=== PATIENT | female | born 1945 | race African-American/Black ===

== ENCOUNTER 2016-06-11 11:16 | Inpatient (IN) | payer OTHER ==
[~2016-06-11] VITALS: Ht 160 cm; Wt 54.4 kg
[~2016-06-11 11:16] MED LIST: AUGMENTIN 500-1 EACH ORAL
[2016-06-11] MEDS ORDERED: PREVACID15 MG ORAL (11:36)
[2016-06-11 12:00] VITALS: BP 135/58
[2016-06-11] MEDS ORDERED: Morphine Sulfate 2mg/ml Inj IVP ONE (12:00)
[2016-06-11] MEDS ORDERED: Tubing IV Cassette IV ONE (12:07)
[2016-06-11 12:51] LABS: MEAN CORPUSCULAR HGB CONC 33.2 G/DL (32.0-36.0); MEAN CORPUSCULAR VOLUME 99 FL (80-99); MEAN PLATELET VOLUME 9.5 FL (6.5-10.1); PLATELET COUNT 104 K/UL (150-450); RED BLOOD COUNT 4.53 M/UL (4.20-5.40); RED CELL DISTRIBUTION WIDTH 12.8 % (11.6-14.8)
[2016-06-11 12:57] LABS: WHITE BLOOD COUNT 1.3 K/UL (4.8-10.8)
[2016-06-11 13:02] LABS: ALANINE AMINOTRANSFERASE 13 U/L (3-33); ALBUMIN/GLOBULIN RATIO 0.6 (1.0-2.7); ANION GAP 14 (5-15); ASPARTATE AMINO TRANSFERASE 47 U/L (5-40); CALCIUM 9.2 mg/dL (8.6-10.2); CARBON DIOXIDE 23 mEQ/L (20-30); CHLORIDE 100 mEQ/L (98-107); CREATININE 0.6 mg/dL (0.5-0.9); GLOMERULAR FILTRATION RATE > 60 mL/min (>60); HEMOLYSIS 8; LIPASE 37 U/L (< 60); POTASSIUM 4.5 mEQ/L (3.4-4.9); SODIUM 137 mEQ/L (135-145); TOTAL PROTEIN 8.4 g/dL (6.6-8.7); TROPONIN I < 0.30 ng/mL (<=0.30)
[2016-06-11 13:03] LABS: INR 1.2 (0.9-1.1); PROTHROMBIN TIME 12.3 SEC (9.30-11.50)
[2016-06-11 13:19] LABS: BILIRUBIN,DIRECT 0.5 mg/dL (0.1-0.3)
[2016-06-11 13:20] LABS: BAND NEUTROPHILS % (MANUAL) 0 % (0-8); BASOPHILS % (MANUAL) 0 % (0-2); EOSINOPHILS % (MANUAL) 9 % (0-3); LYMPHOCYTES % (MANUAL) 46 % (20-45); NEUTROPHILS % (MANUAL) 30 % (45-75); PLATELET ESTIMATE DECREASED; PLATELET MORPHOLOGY NORMAL; TOTAL CELLS COUNTED 100
[2016-06-11 15:07] VITALS: BP 102/61
[2016-06-11] MEDS ORDERED: XANAX2 MG ORAL (15:53)
[2016-06-11] MEDS ORDERED: BACLOFEN10 MG ORAL (15:54)
[2016-06-11] MEDS ORDERED: OMEPRAZOLE20 M2 ORAL (15:55)
[2016-06-11] MEDS ORDERED: PROAIR HFA8.5 GM INH (15:56)
[2016-06-11] MEDS ORDERED: ACETAMINOPHEN1 EACH ORAL (15:58)
[2016-06-11] MEDS ORDERED: TUMS200 M1 PO (15:59)
--- NOTE | 2016-06-11 16:25 | Emergency Room Report ---
History of Present Illness General Chief Complaint: Abdominal Pain Source: Patient, EMS Present Illness HPI Presents with severe diarrhea and now weakness. The diarrhea is been going on for 3 weeks. It's worse in the last week. Apparently 2 weeks ago she was taking antibiotics. She has fallen twice in the past 2 days due to weakness. She hit her knees causing abrasions. She's been so weak she's been unable to sit up and transfer without a lot of help from her daughter at home. She was barely able to sit up earlier today. Denies any fevers or chills. She's not vomiting. There's been no blood in the stool. Stool yellowish color. Denies any dysuria. Her mouth is dry. No chest pain, cough, headache, dizziness. Weakness is generalized. She incidentally reports some crampy pain diffusely in the abdomen. Pain reported 8/10, intermittent, not radiate. No recent head trauma. Allergies: Coded Allergies: ASPIRIN (Verified Allergy, Unknown, Hives, 06/11/16) Patient History Past Medical History: see triage record Social History: Reports: smoking Social History Narrative At home with daughter Reviewed Nursing Documentation: PMH: Agreed, PSxH: Agreed Nursing Documentation-PM Past Medical History: No History, Except For Hx Gastrointestinal Problems: Yes - GERD Review of Systems All Other Systems: negative except mentioned in HPI Physical Exam Vital Signs Date Time Temp Pulse Resp B/P Pulse Ox O2 Delivery O2 Flow Rate FiO2 06/11/16 11:32 98.6 91 20 107/56 100 Room Air Sp02 EP Interpretation: reviewed, normal General Appearance: no apparent distress, GCS 15, obese, Chronically Ill Head: normocephalic Eyes: bilateral eye PERRL, bilateral eye normal inspection ENT: dry mucus membranes - coating on tongue Neck: supple Respiratory: chest non-tender, lungs clear, normal breath sounds Cardiovascular #1: regular rate, rhythm, edema Cardiovascular #2: 2+ radial (R) Gastrointestinal: normal inspection, normal bowel sounds, no mass, no guarding , no rebound, tenderness - minimal, diffuse, overweight Musculoskeletal: back normal, normal range of motion Neurologic: alert, oriented x3, cnc maintenance technician III-XII nml as tested, DTRs symmetric, sensory intact, cerebellar normal, speech normal, motor weakness - 4+/5 LE, arms normal Psychiatric: depressed affect Skin: normal inspection, warm/dry Medical Decision Making Diagnostic Impression: Primary Impression: Dysentery Additional Impressions: Weakness Leukopenia Qualified Codes: D72.818 - Other decreased white blood cell count ER Course Patient presents with acute exacerbation of subacute diarrhea with abdominal pain. DDx: C dificile, gastroenteritis, villous adenoma, diverticulitis. Weakness needs to be evaluated with labs, UA and renal function. No evidence of sepsis. Labs sig for leukopenia (has been present since 2009). Ulises not collected. Nl H/H. Urine clear. Patient's pain improved, but weakness persists. Patient admit med. Discussed with Dr. Bain. Laboratory Tests Test 06/11/16 12:00 White Blood Count 1.3 K/UL (4.8-10.8) *L Red Blood Count 4.53 M/UL (4.20-5.40) Hemoglobin 15.0 G/DL (12.0-16.0) Hematocrit 45.1 % (37.0-47.0) Mean Corpuscular Volume 99 FL (80-99) Mean Corpuscular Hemoglobin 33.0 PG (27.0-31.0) H Mean Corpuscular Hemoglobin Concent 33.2 G/DL (32.0-36.0) Red Cell Distribution Width 12.8 % (11.6-14.8) Platelet Count 104 K/UL (150-450) L Mean Platelet Volume 9.5 FL (6.5-10.1) Neutrophils (%) (Auto) % (45.0-75.0) Lymphocytes (%) (Auto) % (20.0-45.0) Monocytes (%) (Auto) % (1.0-10.0) Eosinophils (%) (Auto) % (0.0-3.0) Basophils (%) (Auto) % (0.0-2.0) Differential Total Cells Counted 100 Neutrophils % (Manual) 30 % (45-75) L Lymphocytes % (Manual) 46 % (20-45) H Monocytes % (Manual) 15 % (1-10) H Eosinophils % (Manual) 9 % (0-3) H Basophils % (Manual) 0 % (0-2) Band Neutrophils 0 % (0-8) Platelet Estimate Decreased L Platelet Morphology Normal Red Blood Cell Morphology Normal Prothrombin Time 12.3 SEC (9.30-11.50) H Prothrombin Time INR 1.2 (0.9-1.1) H PTT 32 SEC (23-33) Sodium Level 137 mEQ/L (135-145) Potassium Level 4.5 mEQ/L (3.4-4.9) Chloride Level 100 mEQ/L (98-107) Carbon Dioxide Level 23 mEQ/L (20-30) Anion Gap 14 (5-15) Blood Urea Nitrogen 9 mg/dL (7-23) Creatinine 0.6 mg/dL (0.5-0.9) Estimate Glomerular Filtration Rate > 60 mL/min (>60) Glucose Level 110 mg/dL (74-106) H Calcium Level 9.2 mg/dL (8.6-10.2) Total Bilirubin 1.7 mg/dL (0.0-1.2) H Direct Bilirubin 0.5 mg/dL (0.1-0.3) H Aspartate Amino Transferase (AST) 47 U/L (5-40) H Alanine Aminotransferase (ALT) 13 U/L (3-33) Alkaline Phosphatase 123 U/L (35-104) H Troponin I < 0.30 ng/mL (<=0.30) Total Protein 8.4 g/dL (6.6-8.7) Albumin 3.2 g/dL (3.5-5.2) L Globulin 5.2 g/dL Albumin/Globulin Ratio 0.6 (1.0-2.7) L Lipase 37 U/L (< 60) EKG Diagnostic Results Rate: normal Rhythm: NSR ST Segments: no acute changes Rhythm Strip Diag. Results EP Interpretation: yes Rhythm: NSR, no PVC's, no ectopy Chest X-Ray Diagnostic Results EP Interpretation: Yes Findings: no consolidation, no effusion, no pneumothorax, no acute cardiopulmonary disease Number of Views: 1 Other X-Ray Diagnostic Results Other X-Ray Diagnostic Results : X-Ray Ordered: abd EP Interpretation: Yes Findings: other - No mass, NSBGP, no extra calcifications Number of Views: 1 Last Vital Signs Date Time Temp Pulse Resp B/P Pulse Ox O2 Delivery O2 Flow Rate FiO2 06/11/16 20:00 98.6 79 20 94/62 98 Room Air 06/11/16 20:00 2.0 Status: improved Disposition: ADMITTED INPATIENT Condition: Serious Referrals: [facility],REFERRING (PCP) Mariam,Rodrigo M.D. Jun 11, 2016 16:25
[2016-06-11 16:38] VITALS: BP 98/57
[2016-06-11 16:39] LABS: KETONES,URINE NEGATIVE (NEGATIVE); LEUKOCYTE ESTERASE ,URINE 1+ (NEGATIVE); NITRITE,URINE NEGATIVE (NEGATIVE); PH,URINE 6.5 (4.5-8.0); PROTEIN,URINE NEGATIVE (NEGATIVE); UROBILINOGEN,URINE 4 MG/DL (0.0-1.0)
[2016-06-11 16:52] LABS: APPEARANCE,URINE CLOUDY
[2016-06-11 16:56] LABS: SQUAMOUS EPITHELIAL CELL,UR MANY /LPF (NONE/OCC)
[2016-06-11 16:57] LABS: BACTERIA,URINE FEW /HPF
--- NOTE | 2016-06-11 18:11 | Diagnostic Imaging Report ---
Indication: Chest pain Technique: One view of the chest Comparison: 12/09/2009 Findings: Lungs and pleural spaces are clear. Heart size is normal. Aorta is elongated and tortuous. No significant change Impression: No acute process
[2016-06-11 19:17] VITALS: BP 94/62
[2016-06-11 20:00] VITALS: BP 83/57
[2016-06-11] MEDS ORDERED: Loperamide 2mg cap ORAL PRN (20:15)
[2016-06-11] MEDS ORDERED: Heparin 5000 units/ml inj SUBQ SCH (21:00)
[2016-06-11] MEDS: D5W w/KCl 20mEq 1,000 ML IV SCH (22:00)
[2016-06-12] VITALS: BP 97/65
[2016-06-12 04:00] VITALS: BP_SYST 102; BP_SYST 136; BP_DIAS 74
[2016-06-12 08:00] VITALS: BP 100/66
--- NOTE | 2016-06-12 09:35 | Diagnostic Imaging Report ---
Indication: Abdominal pain Technique: Supine view of the abdomen Comparison: 01/04/2007 Findings: There are right upper quadrant calcifications, presumed gallstones, not evident previously. Bowel gas pattern is unremarkable. No unusual masses. Impression: No acute process Cholelithiasis
[2016-06-12] MEDS: D5W w/KCl 20mEq 1,000 ML IV SCH ×2 (10:13→12:00)
[2016-06-12] MEDS: Morphine Sulfate 2mg/ml Inj IVP PRN ×2 (10:18→19:15)
--- NOTE | 2016-06-12 11:01 | Cardiology Report ---
APPROVED REPORT EKG Measurement Heart [id number] SD [id number] Normal sinus rhythm Possible Left atrial enlargement Low voltage QRS Borderline ECG
[2016-06-12 11:15] LABS: MEAN CORPUSCULAR HGB CONC 32.9 G/DL (32.0-36.0); MEAN CORPUSCULAR VOLUME 100 FL (80-99); MEAN PLATELET VOLUME 5.9 FL (6.5-10.1); PLATELET COUNT 72 K/UL (150-450); RED BLOOD COUNT 3.87 M/UL (4.20-5.40); RED CELL DISTRIBUTION WIDTH 12.8 % (11.6-14.8)
[2016-06-12 11:18] LABS: WHITE BLOOD COUNT 1.5 K/UL (4.8-10.8)
[2016-06-12 11:49] LABS: BAND NEUTROPHILS % (MANUAL) 0 % (0-8); BASOPHILS % (MANUAL) 0 % (0-2); EOSINOPHILS % (MANUAL) 8 % (0-3); LYMPHOCYTES % (MANUAL) 49 % (20-45); NEUTROPHILS % (MANUAL) 33 % (45-75); PLATELET ESTIMATE DECREASED; PLATELET MORPHOLOGY NORMAL; TOTAL CELLS COUNTED 100
[2016-06-12 12:00] VITALS: BP 98/69
[2016-06-12] MEDS: metroNIDAZOLE 500mg 100 ML IVPB SCH ×2 (13:12→22:18)
[2016-06-12] MEDS ORDERED: NS 250 ML IVPB ONE (14:00)
[2016-06-12 16:00] VITALS: BP 91/47
--- NOTE | 2016-06-12 16:19 | History and Physical Report ---
DATE OF ADMISSION: 06/11/2016 HISTORY OF PRESENT ILLNESS: This is a 70-year-old female, who came to the emergency room with complaints of diarrhea. This has been going on for several weeks. She was taking Amoxil a few weeks ago. She states she has also fallen down in the last several days and hit her knees causing abrasions. She is unable to sit up. She is complaining of lower abdominal pain. There is no fever or chills. No emesis. ALLERGIES: Aspirin. PAST MEDICAL HISTORY: Previous medical history is notable for GERD. MEDICATIONS: List of home medications includes Amoxil and other p.r.n. SURGERIES: None reported. REVIEW OF SYSTEMS: She denies any headaches, hematemesis, or melena. She admits to having mild nausea. She admits to having diarrhea. She admits to having generalized weakness. PHYSICAL EXAMINATION: GENERAL: A 70-year-old female. VITAL SIGNS: Blood pressure is 102/70, heart rate 70, respirations 18, she is afebrile, and O2 saturation 93% on room air. HEENT: Unremarkable. CHEST: Clear. Breath sounds bilaterally. ABDOMEN: Soft. There is mild bilateral lower quadrant discomfort. EXTREMITIES: There is edema. EKG: Normal sinus rhythm. LABORATORY DATA: Lab testing shows white count of 1.3, hemoglobin 15, and platelet count is 104,000. Total bilirubin 1.7 and AST 47. Glucose 110. Albumin 3.2. Coags are negative. INR is 1.2. Urinalysis shows 2 to 4 WBC. IMAGING STUDIES: Abdominal x-ray yesterday were nonspecific. X-ray chest is negative. IMPRESSION: 1. Diarrhea. 2. Abdominal pain. 3. History of gastroesophageal reflux disease. 4. Recent antibiotic usage. DISCUSSION: Admit to the hospital. I will start the patient on IV fluids, DVT prophylaxis, and pain medications. Start empiric Flagyl and follow carefully. Obtain GI consultation. Bruce Bain M.D. DR: AYUSH JOB#: [id number] CC:
--- NOTE | 2016-06-12 18:59 | Consultation ---
DATE OF CONSULTATION: 06/12/2016 GASTROENTEROLOGY CONSULTATION CHIEF COMPLAINT: Weakness and diarrhea. HISTORY OF PRESENT ILLNESS: The patient is a very poor historian. Most of history per chart. This is a 70-year-old female, came to the hospital complaining of diarrhea and weakness, this is apparently going on for three weeks. The patient has been losing weight. Apparently two weeks ago, she was taking some antibiotics in. We do not know what kind antibiotics she was taking that she has been having diarrhea since then. PAST MEDICAL HISTORY: Nothing per chart. PAST SURGICAL HISTORY: Unknown. MEDICATIONS: Please see medication reconciliation list. ALLERGIES: Aspirin. FAMILY HISTORY: Noncontributory. REVIEW OF SYSTEMS: Limited. PHYSICAL EXAMINATION: VITAL SIGNS: Temperature 98.1 degrees, pulse 90, respiratory rate 18, and blood pressure 98/69. HEENT: Normocephalic and atraumatic. Sclerae anicteric. NECK: Supple. No evidence of lymphadenopathy. CARDIOVASCULAR: Regular rate and rhythm. Plus S1 and S2. LUNGS: Decreased breath sounds bilaterally and diffusely. ABDOMEN: Soft and nontender. No rebound. No guarding. EXTREMITIES: No cyanosis. No clubbing. No edema. LABORATORY AND DIAGNOSTIC DATA: White count is 1.5, hemoglobin 12.8, hematocrit 38, MCV of 100, and platelet count is 72,000. Glucose is 110. Total bilirubin is 1.7. Direct bilirubin 0.5. Alkaline phosphatase is 123. ASSESSMENT AND PLAN: This is a 70-year-old female with leukopenia, thrombocytopenia, diarrhea and abnormal liver function test. PLAN: Send HIV test. Stool studies including stool for C. difficile. Urine toxicology. Abdominal ultrasound. Hepatitis panel. Follow laboratories. Consider colonoscopy if needed. Anoop Hi M.D. DR: HUGO JOB#: [id number] CC:
[2016-06-12 20:00] VITALS: BP 106/67
[2016-06-13] VITALS: BP 90/62
[2016-06-13] MEDS: D5W w/KCl 20mEq 1,000 ML IV SCH (02:43)
[2016-06-13 04:00] VITALS: BP 96/64
[2016-06-13] MEDS: metroNIDAZOLE 500mg 100 ML IVPB SCH ×3 (04:57→22:00)
[2016-06-13 07:13] LABS: ANION GAP 10 (5-15); CALCIUM 8.6 mg/dL (8.6-10.2); CARBON DIOXIDE 25 mEQ/L (20-30); CHLORIDE 105 mEQ/L (98-107); CREATININE 0.6 mg/dL (0.5-0.9); GLOMERULAR FILTRATION RATE > 60 mL/min (>60); HEMOLYSIS 3; SODIUM 140 mEQ/L (135-145)
[2016-06-13 07:21] LABS: MEAN CORPUSCULAR HEMOGLOBIN 33.4 PG (27.0-31.0); MEAN CORPUSCULAR HGB CONC 33.4 G/DL (32.0-36.0); MEAN CORPUSCULAR VOLUME 100 FL (80-99); MEAN PLATELET VOLUME 6.1 FL (6.5-10.1); PLATELET COUNT 95 K/UL (150-450); RED CELL DISTRIBUTION WIDTH 12.6 % (11.6-14.8)
[2016-06-13 08:00] VITALS: BP 90/60
[2016-06-13 08:07] LABS: WHITE BLOOD COUNT 1.4 K/UL (4.8-10.8)
[2016-06-13] MEDS: Morphine Sulfate 2mg/ml Inj IVP PRN ×3 (08:10→22:12)
[2016-06-13 08:17] LABS: BAND NEUTROPHILS % (MANUAL) 0 % (0-8); BASOPHILS % (MANUAL) 3 % (0-2); EOSINOPHILS % (MANUAL) 10 % (0-3); LYMPHOCYTES % (MANUAL) 30 % (20-45); NEUTROPHILS % (MANUAL) 30 % (45-75); PLATELET ESTIMATE DECREASED; TOTAL CELLS COUNTED 100
[2016-06-13 08:18] LABS: PLATELET MORPHOLOGY NORMAL
--- NOTE | 2016-06-13 10:29 | Pulmonology Progress Note ---
Assessment/Plan Assessment/Plan IMPRESSION: 1. Diarrhea. Less compared to yesterday 2. Abdominal pain. 3. History of gastroesophageal reflux disease. 4. Recent antibiotic usage. 5. Leucopenia. DISCUSSION: Will consult ID. Continue IV fluids, DVT prophylaxis, and pain medications. On empiric Flagyl GI consult reviewed HIV negative Subjective Interval Events: Still complaining of abd pain; diarrhea less. Constitutional: Reports: no symptoms HEENT: Repors: no symptoms Respiratory: Reports: no symptoms Cardiovascular: Reports: no symptoms Gastrointestinal/Abdominal: Reports: diarrhea Genitourinary: Reports: no symptoms Neurologic: Reports: no symptoms Allergies: Coded Allergies: ASPIRIN (Verified Allergy, Unknown, Hives, 06/11/16) Objective Last 24 Hour Vital Signs Date Time Temp Pulse Resp B/P Pulse Ox O2 Delivery O2 Flow Rate FiO2 06/13/16 08:40 98.6 06/13/16 08:00 96.3 71 22 90/60 93 Room Air 06/13/16 04:00 98.6 98 18 96/64 92 Room Air 06/13/16 00:00 98.2 100 20 90/62 Nasal Cannula 2.0 06/12/16 20:00 98.4 114 16 106/67 94 Room Air 06/12/16 16:00 98.1 92 18 91/47 100 Room Air 06/12/16 12:00 98.1 90 18 98/69 95 Room Air Intake and Output 06/12/16 06/13/16 19:00 07:00 Intake Total 1240 ml 850 ml Balance 1240 ml 850 ml Intake Oral 240 ml IV Total 1000 ml 850 ml # Voids 2 3 General Appearance: no acute distress HEENT: normocephalic Respiratory/Chest: chest wall non-tender, lungs clear Cardiovascular: normal peripheral pulses, normal rate Abdomen: normal bowel sounds, soft, non tender Laboratory Tests 06/12/16 10:40: White Blood Count 1.5*L, Red Blood Count 3.87L, Hemoglobin 12.8, Hematocrit 38.8 , Mean Corpuscular Volume 100H, Mean Corpuscular Hemoglobin 33.0H, Mean Corpuscular Hemoglobin Concent 32.9, Red Cell Distribution Width 12.8, Platelet Count 72L, Mean Platelet Volume 5.9L, Neutrophils (%) (Auto) , Lymphocytes (%) ( Auto) , Monocytes (%) (Auto) , Eosinophils (%) (Auto) , Basophils (%) (Auto) , Differential Total Cells Counted 100, Neutrophils % (Manual) 33L, Lymphocytes % (Manual) 49H, Monocytes % (Manual) 10, Eosinophils % (Manual) 8H, Basophils % ( Manual) 0, Band Neutrophils 0, Platelet Estimate DecreasedL, Platelet Morphology Normal, Red Blood Cell Morphology Normal, Thyroid Stimulating Hormone (TSH) 0.990, HIV (1&2) Antibody Rapid Negative 06/13/16 05:25: White Blood Count 1.4*L, Red Blood Count 3.80L, Hemoglobin 12.7, Hematocrit 38.0 , Mean Corpuscular Volume 100H, Mean Corpuscular Hemoglobin 33.4H, Mean Corpuscular Hemoglobin Concent 33.4, Red Cell Distribution Width 12.6, Platelet Count 95L, Mean Platelet Volume 6.1L, Neutrophils (%) (Auto) , Lymphocytes (%) ( Auto) , Monocytes (%) (Auto) , Eosinophils (%) (Auto) , Basophils (%) (Auto) , Differential Total Cells Counted 100, Neutrophils % (Manual) 30L, Lymphocytes % (Manual) 30, Monocytes % (Manual) 27H, Eosinophils % (Manual) 10H, Basophils % ( Manual) 3H, Band Neutrophils 0, Platelet Estimate DecreasedL, Platelet Morphology Normal, Red Blood Cell Morphology Normal, Sodium Level 140, Potassium Level 4.0, Chloride Level 105, Carbon Dioxide Level 25, Anion Gap 10, Blood Urea Nitrogen 6L, Creatinine 0.6, Estimat Glomerular Filtration Rate > 60 , Glucose Level 86, Calcium Level 8.6, Ammonia 60H, Carcinoembryonic Antigen 4.5H, CA 19-9 Antigen 25.38, Free Thyroxine 1.26, Hepatitis A IgM Antibody [ Pending], Hepatitis B Surface Antigen [Pending], Hepatitis B Core IgM Antibody [ Pending], Hepatitis C Antibody [Pending] Current Medications Medications (Trade) Dose Ordered Sig/Ok Route PRN Reason Start Time Stop Time Status Last Admin Dose Admin Dextrose (Dextrose 50%) STAT PRN IV Hypoglycemia 06/11/16 20:15 07/11/16 20:14 Dextrose/ Electrolytes (D5W w/KCl 20mEq) 1,000 ml @ 75 mls/hr [id number] IV 06/11/16 21:00 07/11/16 20:59 06/13/16 02:43 Loperamide HCl (Imodium) 1 mg Q4H PRN ORAL Diarrhea 06/12/16 10:15 07/12/16 10:14 Metronidazole (Flagyl) 100 ml @ 100 mls/hr Q8HR IVPB 06/12/16 14:00 06/19/16 13:59 06/13/16 04:57 Morphine Sulfate 2 mg 2 mg Q4H PRN IVP For Pain 06/12/16 09:45 06/19/16 09:44 06/13/16 08:10 Bruce Bain MD Jun 13, 2016 10:29
--- NOTE | 2016-06-13 12:15 | Diagnostic Imaging Report ---
Indication: Abdominal pain, nausea Technique: Martinez-scale and duplex images of the upper abdomen were obtained Comparison: None Findings: . Gallbladder demonstrates gallstones. Gallbladder wall is thickened, measuring 6 mm thick. Aircraft Detail Draftsperson reports sonographic Blood's sign is positive. Common bile duct measures 6 mm in diameter. No intrahepatic biliary ductal dilatation. Liver demonstrates coarsened echogenicity, with surface nodularity.. Portal vein and hepatic veins are patent.. Pancreas is unremarkable. Spleen is unremarkable. Left kidney measures 9.7 cm in length. Right kidney measures 11.4 cm length. Both kidneys demonstrate normal echogenicity. There is no hydronephrosis. No focal abnormality. . Abdominal aorta is partially obscured by bowel gas, visualized portions are non-aneurysmal. Impression: Coarsened liver echotexture and liver surface nodularity, raises concern for cirrhotic change Cholelithiasis. Gallbladder wall thickening and reported positive sonographic Blood's sign raises concern for acute cholecystitis. Gallbladder wall thickening could be related to hepatocellular abnormality, however. Recommend nuclear medicine hepatobiliary scan for further evaluation, as clinically indicated Negative for dilated ducts
--- NOTE | 2016-06-13 13:19 | General Progress Note ---
Assessment/Plan Problem List: (1) Leukopenia ICD Codes: D72.819 - Decreased white blood cell count, unspecified SNOMED: 38896663 (2) possible cirrhosis (3) elevated ammonia levels (4) Thrombocytopenia ICD Codes: D69.6 - Thrombocytopenia, unspecified SNOMED: 121195925 (5) Diarrhea ICD Codes: R19.7 - Diarrhea, unspecified SNOMED: 48740064 (6) Gallstones ICD Codes: K80.20 - Calculus of gallbladder without cholecystitis without obstruction SNOMED: 850374828 Assessment/Plan us reviewed plan HIDA scan fu stool studies xifaxan not stable for colonoscopy given low wbc Subjective ROS Limited/Unobtainable: Yes Allergies: Coded Allergies: ASPIRIN (Verified Allergy, Unknown, Hives, 06/11/16) Subjective feeling better Objective Last 24 Hour Vital Signs Date Time Temp Pulse Resp B/P Pulse Ox O2 Delivery O2 Flow Rate FiO2 06/13/16 08:40 98.6 06/13/16 08:00 96.3 71 22 90/60 93 Room Air 06/13/16 04:00 98.6 98 18 96/64 92 Room Air 06/13/16 00:00 98.2 100 20 90/62 Nasal Cannula 2.0 06/12/16 20:00 98.4 114 16 106/67 94 Room Air 06/12/16 16:00 98.1 92 18 91/47 100 Room Air Intake and Output 06/12/16 06/13/16 18:59 06:59 Intake Total 1240 ml 925 ml Balance 1240 ml 925 ml Intake Oral 240 ml IV Total 1000 ml 925 ml # Voids 2 3 Laboratory Tests 06/13/16 05:25: White Blood Count 1.4*L, Red Blood Count 3.80L, Hemoglobin 12.7, Hematocrit 38.0 , Mean Corpuscular Volume 100H, Mean Corpuscular Hemoglobin 33.4H, Mean Corpuscular Hemoglobin Concent 33.4, Red Cell Distribution Width 12.6, Platelet Count 95L, Mean Platelet Volume 6.1L, Neutrophils (%) (Auto) , Lymphocytes (%) ( Auto) , Monocytes (%) (Auto) , Eosinophils (%) (Auto) , Basophils (%) (Auto) , Differential Total Cells Counted 100, Neutrophils % (Manual) 30L, Lymphocytes % (Manual) 30, Monocytes % (Manual) 27H, Eosinophils % (Manual) 10H, Basophils % ( Manual) 3H, Band Neutrophils 0, Platelet Estimate DecreasedL, Platelet Morphology Normal, Red Blood Cell Morphology Normal, Sodium Level 140, Potassium Level 4.0, Chloride Level 105, Carbon Dioxide Level 25, Anion Gap 10, Blood Urea Nitrogen 6L, Creatinine 0.6, Estimat Glomerular Filtration Rate > 60 , Glucose Level 86, Calcium Level 8.6, Ammonia 60H, Carcinoembryonic Antigen 4.5H, CA 19-9 Antigen 25.38, Free Thyroxine 1.26, Hepatitis A IgM Antibody [ Pending], Hepatitis B Surface Antigen [Pending], Hepatitis B Core IgM Antibody [ Pending], Hepatitis C Antibody [Pending] Height (Feet): 5 Height (Inches): 3.00 Weight (Pounds): 120 General Appearance: alert EENT: normal ENT inspection Neck: supple Cardiovascular: normal rate Respiratory/Chest: lungs clear Abdomen: normal bowel sounds, non tender, soft Extremities: non-tender CHLOE GARY Jun 13, 2016 13:19
[2016-06-13 16:00] VITALS: BP 109/64
[2016-06-13] MEDS: Cefepime HCl 1 GM in D5W 55 ML IVPB SCH (17:44)
[2016-06-13 20:44] VITALS: BP 109/73
[2016-06-13] MEDS: Rifaximin 550mg tab ORAL SCH (22:09)
[2016-06-14] VITALS: BP 95/65
--- NOTE | 2016-06-14 00:18 | Consultation ---
DATE OF CONSULTATION: 06/13/2016 CONSULTING PHYSICIAN: Petr Sandra M.D. PRIMARY ATTENDING PHYSICIAN: Bruce Bain M.D. REASON FOR CONSULT: Leukopenia and diarrhea. HISTORY OF PRESENT ILLNESS: This is a 70-year-old -[place] female admitted on 06/11/2016 complaining of diarrhea. She has diarrhea for couple of weeks. It has become worse in the last several days. She had fallen down because of weakness. She has lower abdominal pain. PAST MEDICAL HISTORY: Significant for already the patient is allergic to aspirin with rashes. MEDICATIONS: Rifaximin, Metamucil, Imodium, and morphine. SOCIAL HISTORY: Divorce and smoker. She lives with daughter. REVIEW OF SYSTEMS: She has lower abdominal pain. No nausea. No vomiting. No fever because she states that she has fever before admission. The patient has been taking amoxicillin. PHYSICAL EXAMINATION: VITAL SIGNS: Temperature is 98.6 degrees, pulse 71, and blood pressure is 190/60. GENERAL APPEARANCE: She seems to be thin. HEAD AND NECK: [place] conjunctivae. HEART: Regular. LUNGS: Clear. ABDOMEN: Tender in lower quadrant. EXTREMITIES: No edema. LABORATORY DATA: WBC 11.4, hemoglobin 12.7, hematocrit 37, and platelets 97,000. Neutrophils is 30%, lymphocytes is 30%, and monocytes is 27%. Sodium 140, potassium 4, chloride 105, bicarbonate 25, BUN 6, and creatinine 0.6. The patient had abdominal ultrasound that showed gallbladder wall thickening. Reported positive sonographic Blood sign concern for acute cholecystitis. Nuclear medicine test recommended. . IMPRESSION: An elderly female with diarrhea. Try to rule out C. difficile. The patient also is leukopenic and immune deficient. May have cholecystitis based on the ultrasound report. Currently, she had no fever or thrombocytopenia. The patient has a history of smoking. RECOMMENDATIONS: Start the patient on Cefepime. Continue Flagyl and ask for HIDA scan. Followup C. diff test and cultures. I thank Dr. Bain for allowing me in the care of this patient. Petr Sandra M.D. DR: ADITYA JOB#: [id number] CC: MELO
[2016-06-14] MEDS: D5W w/KCl 20mEq 1,000 ML IV SCH ×2 (02:20→15:40)
[2016-06-14] MEDS: metroNIDAZOLE 500mg 100 ML IVPB SCH ×3 (05:08→21:59)
[2016-06-14 08:00] VITALS: BP 100/63
[2016-06-14] MEDS: Rifaximin 550mg tab ORAL SCH ×3 (09:00→20:29)
[2016-06-14] MEDS: Morphine Sulfate 2mg/ml Inj IVP PRN ×2 (09:19→16:22)
--- NOTE | 2016-06-14 10:57 | Diagnostic Imaging Report ---
Indication: Abdominal pain Technique: IV administration 5.3 mCi 99M technetium mebrofenin. Serial images obtained over the abdomen. 53 minutes, 2 mg of morphine were given IV Comparison: Reference made to ultrasound dated 06/04/2016 Findings: There is prompt hepatic tracer uptake. Extrahepatic bile ducts are first visualized at 16 minutes, and tracer activity in the duodenum shortly after that. Prior to morphine administration, the gallbladder is not visualized. However, even after morphine administration, there is prompt appearance of tracer within the gallbladder. Impression: Negative. No evidence of cystic duct or common bile duct obstruction
[2016-06-14 12:00] VITALS: BP 83/50
--- NOTE | 2016-06-14 13:19 | GI Progress Note ---
Assessment/Plan Problems: (1) Weakness ICD Codes: R53.1 - Weakness SNOMED: 26127221 (2) possible cirrhosis (3) elevated ammonia levels (4) Thrombocytopenia ICD Codes: D69.6 - Thrombocytopenia, unspecified SNOMED: 338645670 (5) Diarrhea ICD Codes: R19.7 - Diarrhea, unspecified SNOMED: 00230872 (6) Abdominal pain ICD Codes: R10.9 - Unspecified abdominal pain SNOMED: 28274589 Status: unchanged Status Narrative Discussed with Dr. Hi. Assessment/Plan HIV negative HIDA scan >> Negative. No evidence of cystic duct or common bile duct obstruction not stable for colonoscopy given low wbc xifaxan Imodium prn fu hep panel fu stool studies fu labs Subjective Subjective watery stools Objective Last 24 Hour Vital Signs Date Time Temp Pulse Resp B/P Pulse Ox O2 Delivery O2 Flow Rate FiO2 06/14/16 12:00 97.5 89 20 83/50 92 Room Air 06/14/16 09:49 97.9 06/14/16 08:00 97.9 90 20 100/63 87 Room Air 06/14/16 00:00 97.5 92 18 95/65 93 Room Air 06/13/16 20:44 97.5 107 20 109/73 93 Room Air 06/13/16 16:00 97.5 76 18 109/64 97 Room Air Intake and Output 06/13/16 06/14/16 19:00 07:00 Intake Total 845 ml 565 ml Balance 845 ml 565 ml Intake Oral 240 ml 240 ml IV Total 605 ml 325 ml # Voids 1 3 Height (Feet): 5 Height (Inches): 3.00 Weight (Pounds): 120 General Appearance: no apparent distress, alert Cardiovascular: normal rate Respiratory/Chest: normal breath sounds, no respiratory distress Abdominal Exam: normal bowel sounds, non tender Objective BM x 1 large yesterday Ana M Mena NJessica Jun 14, 2016 13:19
--- NOTE | 2016-06-14 15:52 | Infectious Diseases Prog Note ---
Assessment/Plan Assessment/Plan A; Leukopenia, & neutropenia Diarrhea improved Abdominal pain ? cirrhosis P: case was D/W Dr Ricketts continue Flagyl, stop Cefepime Subjective ROS Limited/Unobtainable: No Constitutional: Reports: other - poor appetite Gastrointestinal/Abdominal: Reports: other - lower abdominal pain Psychiatric: Reports: other - refuse medications sometimes Allergies: Coded Allergies: ASPIRIN (Verified Allergy, Unknown, Hives, 06/11/16) Objective Vital Signs Last 24 Hour Vital Signs Date Time Temp Pulse Resp B/P Pulse Ox O2 Delivery O2 Flow Rate FiO2 06/14/16 12:00 97.5 89 20 83/50 92 Room Air 06/14/16 09:49 97.9 06/14/16 08:00 97.9 90 20 100/63 87 Room Air 06/14/16 00:00 97.5 92 18 95/65 93 Room Air 06/13/16 20:44 97.5 107 20 109/73 93 Room Air 06/13/16 16:00 97.5 76 18 109/64 97 Room Air Height (Feet): 5 Height (Inches): 3.00 Weight (Pounds): 120 General Appearance: no acute distress HEENT: mucous membranes moist Respiratory/Chest: lungs clear Cardiovascular: normal rate Abdomen: tender, other - in lower abdomen Extremities: no edema Neurologic/Psychiatric: alert, responsive Current Medications Medications (Trade) Dose Ordered Sig/Ok Route PRN Reason Start Time Stop Time Status Last Admin Dose Admin Cefepime HCl/ Dextrose (Maxipime/D5W) 55 ml @ 110 mls/hr Q24H IVPB 06/13/16 17:00 06/14/16 18:00 06/13/16 17:44 Dextrose (Dextrose 50%) STAT PRN IV Hypoglycemia 06/11/16 20:15 07/11/16 20:14 Dextrose/ Electrolytes (D5W w/KCl 20mEq) 1,000 ml @ 75 mls/hr [id number] IV 06/11/16 21:00 07/11/16 20:59 06/13/16 02:43 Loperamide HCl (Imodium) 1 mg Q4H PRN ORAL Diarrhea 06/12/16 10:15 07/12/16 10:14 Metronidazole (Flagyl) 100 ml @ 100 mls/hr Q8HR IVPB 06/12/16 14:00 4/4/17 13:59 06/14/16 13:12 Morphine Sulfate 2 mg 2 mg Q4H PRN IVP For Pain 06/12/16 09:45 06/19/16 09:44 06/14/16 09:19 Rifaximin 550 mg 550 mg EVERY 12 HOURS ORAL 06/13/16 21:00 06/20/16 20:59 DORA LEWIS Jun 14, 2016 15:52
[2016-06-14 16:00] VITALS: BP 98/63
[2016-06-14] MEDS: Cefepime HCl 1 GM in D5W 55 ML IVPB SCH (16:39)
--- NOTE | 2016-06-14 17:28 | Pulmonology Progress Note ---
Assessment/Plan Assessment/Plan IMPRESSION: 1. Diarrhea. Less compared to yesterday 2. Abdominal pain. 3. History of gastroesophageal reflux disease. 4. Recent antibiotic usage. 5. Leucopenia. O)n abx per ID DISCUSSION: Patient non-toxic HIDA negative Diarrhea and pain resolved Will discuss with ID and GI re dc plans outpt heme consult arranged Subjective Interval Events: HIDA negative; diarrhea better Constitutional: Reports: no symptoms HEENT: Repors: no symptoms Respiratory: Reports: no symptoms Cardiovascular: Reports: no symptoms Allergies: Coded Allergies: ASPIRIN (Verified Allergy, Unknown, Hives, 06/11/16) Objective Last 24 Hour Vital Signs Date Time Temp Pulse Resp B/P Pulse Ox O2 Delivery O2 Flow Rate FiO2 06/14/16 16:00 97.2 96 18 98/63 93 Room Air 06/14/16 12:00 97.5 89 20 83/50 92 Room Air 06/14/16 09:49 97.9 06/14/16 08:00 97.9 90 20 100/63 87 Room Air 06/14/16 00:00 97.5 92 18 95/65 93 Room Air 06/13/16 20:44 97.5 107 20 109/73 93 Room Air Intake and Output 06/13/16 06/14/16 19:00 07:00 Intake Total 845 ml 565 ml Balance 845 ml 565 ml Intake Oral 240 ml 240 ml IV Total 605 ml 325 ml # Voids 1 3 General Appearance: no acute distress HEENT: normocephalic Respiratory/Chest: chest wall non-tender, lungs clear Cardiovascular: normal peripheral pulses, normal rate Current Medications Medications (Trade) Dose Ordered Sig/Ok Route PRN Reason Start Time Stop Time Status Last Admin Dose Admin Cefepime HCl/ Dextrose (Maxipime/D5W) 55 ml @ 110 mls/hr Q24H IVPB 06/13/16 17:00 06/14/16 18:00 06/14/16 16:39 Dextrose (Dextrose 50%) STAT PRN IV Hypoglycemia 06/11/16 20:15 07/11/16 20:14 Dextrose/ Electrolytes (D5W w/KCl 20mEq) 1,000 ml @ 75 mls/hr [id number] IV 06/11/16 21:00 07/11/16 20:59 06/13/16 02:43 Loperamide HCl (Imodium) 1 mg Q4H PRN ORAL Diarrhea 06/12/16 10:15 07/12/16 10:14 Metronidazole (Flagyl) 100 ml @ 100 mls/hr Q8HR IVPB 06/12/16 14:00 06/19/16 13:59 06/14/16 13:12 Morphine Sulfate 2 mg 2 mg Q4H PRN IVP For Pain 06/12/16 09:45 06/19/16 09:44 06/14/16 16:22 Rifaximin 550 mg 550 mg EVERY 12 HOURS ORAL 06/13/16 21:00 06/20/16 20:59 Bruce Bain MD Jun 14, 2016 17:28
[2016-06-14 20:00] VITALS: BP 96/66
[2016-06-15] VITALS: BP 97/64
[2016-06-15 04:00] VITALS: BP 98/68
[2016-06-15] MEDS: D5W w/KCl 20mEq 1,000 ML IV SCH (05:00)
[2016-06-15] MEDS: metroNIDAZOLE 500mg 100 ML IVPB SCH (05:09)
--- NOTE | 2016-06-15 08:49 | Pulmonology Progress Note ---
Assessment/Plan Assessment/Plan IMPRESSION: 1. Diarrhea. resolved 2. Abdominal pain.resolved 3. History of gastroesophageal reflux disease. 4. Recent antibiotic usage. 5. Leucopenia. May have been secondary to Augmentin use as outpt; presently afebrile DISCUSSION: Patient non-toxic HIDA negative Diarrhea and pain resolved Will dc home outpt heme consult arranged Subjective Interval Events: No fever; feels well Constitutional: Reports: no symptoms HEENT: Repors: no symptoms Respiratory: Reports: no symptoms Cardiovascular: Reports: no symptoms Allergies: Coded Allergies: ASPIRIN (Verified Allergy, Unknown, Hives, 06/11/16) Objective Last 24 Hour Vital Signs Date Time Temp Pulse Resp B/P Pulse Ox O2 Delivery O2 Flow Rate FiO2 06/15/16 04:00 97.8 89 18 98/68 95 Room Air 06/15/16 00:00 97.7 91 18 97/64 94 Room Air 06/14/16 20:00 97.7 100 18 96/66 92 Room Air 06/14/16 16:00 97.2 96 18 98/63 93 Room Air 06/14/16 12:00 97.5 89 20 83/50 92 Room Air 06/14/16 09:49 97.9 Intake and Output 06/14/16 06/15/16 19:00 07:00 Intake Total 250 ml 360 ml Balance 250 ml 360 ml Intake Oral 360 ml IV Total 250 ml # Voids 2 General Appearance: no acute distress HEENT: normocephalic Respiratory/Chest: normal breath sounds Current Medications Medications (Trade) Dose Ordered Sig/Ok Route PRN Reason Start Time Stop Time Status Last Admin Dose Admin Dextrose (Dextrose 50%) STAT PRN IV Hypoglycemia 06/11/16 20:15 07/11/16 20:14 Dextrose/ Electrolytes (D5W w/KCl 20mEq) 1,000 ml @ 75 mls/hr [id number] IV 06/11/16 21:00 07/11/16 20:59 06/13/16 02:43 Loperamide HCl (Imodium) 1 mg Q4H PRN ORAL Diarrhea 06/12/16 10:15 07/12/16 10:14 Metronidazole (Flagyl) 100 ml @ 100 mls/hr Q8HR IVPB 06/12/16 14:00 06/19/16 13:59 06/14/16 13:12 Morphine Sulfate 2 mg 2 mg Q4H PRN IVP For Pain 06/12/16 09:45 06/19/16 09:44 06/14/16 16:22 Ondansetron HCl (Zofran) 4 mg Q6H PRN IVP Nausea & Vomiting 06/14/16 19:45 07/14/16 19:44 Rifaximin (Xifaxan) 550 mg EVERY 12 HOURS ORAL 06/13/16 21:00 06/20/16 20:59 Bruce Bain MD Jun 15, 2016 08:49
[2016-06-15] MEDS ORDERED: METRONIDAZOLE500 MG ORAL (08:51)
[2016-06-15] MEDS: Rifaximin 550mg tab ORAL SCH (09:00)
--- NOTE | 2016-06-15 12:41 | GI Progress Note ---
Assessment/Plan Problems: (1) Weakness ICD Codes: R53.1 - Weakness SNOMED: 10567937 (2) possible cirrhosis (3) elevated ammonia levels (4) Thrombocytopenia ICD Codes: D69.6 - Thrombocytopenia, unspecified SNOMED: 322530509 (5) Diarrhea ICD Codes: R19.7 - Diarrhea, unspecified SNOMED: 49226405 (6) Abdominal pain ICD Codes: R10.9 - Unspecified abdominal pain SNOMED: 87497751 Status: stable Status Narrative Discussed with Dr. Hi. Assessment/Plan HIV negative HIDA scan >> Negative. No evidence of cystic duct or common bile duct obstruction not stable for colonoscopy given low wbc xifaxan Imodium prn fu hep panel fu stool studies fu labs Subjective Gastrointestinal/Abdominal: Reports: no symptoms Objective Last 24 Hour Vital Signs Date Time Temp Pulse Resp B/P Pulse Ox O2 Delivery O2 Flow Rate FiO2 06/15/16 04:00 97.8 89 18 98/68 95 Room Air 06/15/16 00:00 97.7 91 18 97/64 94 Room Air 06/14/16 20:00 97.7 100 18 96/66 92 Room Air 06/14/16 16:00 97.2 96 18 98/63 93 Room Air Intake and Output 06/14/16 06/15/16 19:00 07:00 Intake Total 250 ml 360 ml Balance 250 ml 360 ml Intake Oral 360 ml IV Total 250 ml # Voids 2 Height (Feet): 5 Height (Inches): 3.00 Weight (Pounds): 120 General Appearance: no apparent distress, alert Cardiovascular: normal rate Respiratory/Chest: normal breath sounds, no respiratory distress Abdominal Exam: normal bowel sounds, non tender, soft Ana M Mena N.PNavya Jun 15, 2016 12:41
[2016-06-15] MEDS ORDERED: Cefepime HCl 1 GM in NS 55 ML IVPB SCH (17:00)
--- NOTE | 2016-06-18 12:06 | Discharge Summary ---
Discharge Summary Hospital Course Date of Admission Jun 11, 2016 at 16:30 Date of Discharge Jun 15, 2016 at 10:00 Admitting Diagnosis dysentary weakness Reason for Hospitalization: intractable diarrhea, severe generalzied weakness, falls HPI Sheela Hitchcock is a 70 year old female who was admitted on Jun 11, 2016 at 16 :30 for Dysentary Weakness Hospital Course dc summary #[id number] Discharge Medications New Medications: Metronidazole* (Flagyl*) 500 Mg Tablet 500 MG ORAL EVERY 8 HOURS for 7 Days, TAB Continued Medications: Acetaminophen/Diphenhydramine (Acetaminophen Pm Caplet) 1 Each Tablet 1 TAB ORAL BEDTIME PRN for For Pain, TAB Albuterol Sulfate* (Proair Hfa*) 8.5 Gm Hfa.aer.ad 2 PUFFS INH Q6H PRN for Shortness of Breath Alprazolam* (Xanax*) 2 Mg Tablet 1 MG ORAL EVERY OTHER DAY PRN for For Anxiety, TAB Patient cuts pill in 1/2 Baclofen* (Baclofen*) 10 Mg Tablet 10 MG ORAL THREE TIMES A DAY PRN for Muscle Spasm, TAB Calcium Carbonate (Tums) 200 Mg Tab.chew 200 MG PO DAILY PRN for HEARTBURN, TAB Omeprazole (Omeprazole) 20 Mg Capsule.dr 20 MG ORAL DAILY, CAP Discontinued Medications: Amoxicillin/Potassium Clav 500-125 Tablet* (Augmentin 500-125 Tablet*) 1 Each Tablet 1 TAB ORAL BID, TAB Discharge Condition Upon Discharge: stable Discharge Disposition Patient was discharged to Home (01) Discharge Diagnoses: Discharge Instructions Discharge Instructions Follow up with: hospitalist as outpatient, fup with PMD Special Instructions I have been assigned to complete a D/C Summary on this account. I was not involved in the patient management Rocio Rodarte NP (Vanchtein) Jun 18, 2016 12:06
--- NOTE | 2016-06-19 01:08 | Discharge Summary 2 SIG ---
DATE OF ADMISSION: 06/11/2016 DATE OF DISCHARGE: 06/15/2016 REASON FOR ADMISSION: 70-year-old female was brought to the emergency room for evaluation due to severe intractable diarrhea and weakness. Diarrhea continued for three weeks and worse in the last week. The patient was taking two weeks ago antibiotics. Due to her weakness, she was fallen twice in the last two days. She hit her knees ,causing abrasion. She was unable to sit up due to weakness and need to be transferred with a lot of help of her daughter at home. Denied fever or chills. Denied vomiting. No blood in the stool. No dark tarry stools. Stool of yellowish color. She denied dysuria or flank pain. No chest pain. No shortness of breath or palpitations. Workup in the emergency room revealed leukopenia with white blood count of 1.3. Stable hemoglobin and hematocrit. Platelets 104,000. Electrolytes were stable. Troponin negative. Slightly elevated transaminase with a total bilirubin of 1.7, direct bilirubin of 0.5, and AST of 47 with ALT being within normal limits. EKG revealed normal sinus rhythm. No acute changes. Chest x-ray revealed no consolidation, no effusion, no pneumothorax. No acute cardiopulmonary disease. Abdominal x-ray revealed no acute process. The patient was admitted to the hospital for further management. ADMITTING DIAGNOSES: 1. Diarrhea, rule out C dif colitis. 2. Dehydration. 3. Leukopenia. 4. Severe generalized weakness. 5. Recent antibiotic use. 6. History of gastroesophageal reflux disease. HOSPITAL COURSE: The patient was admitted on the floor. GI consult was requested. The patient undergone abdominal ultrasound, which revealed cholelithiasis, gallbladder wall thickening positive sonographic Blood's sign with a concern for acute cholecystitis. Gallbladder wall thickening could also be related to hepatocellular abnormality. Noted coarsened liver echotexture and liver surface nodularity, raising concern for cirrhotic changes. Negative for dilated duct. Gastrointestinal specialist subsequently ordered HIDA scan to rule out acute cholecystitis. HIDA scan was negative. No evidence of cystic duct or common bile duct obstruction. The patient initially was started on IV fluids. The patient was on empiric Flagyl. Stool for C dif and stool culture were ordered , however, the patient did not provide any stool samples stating that her diarrhea stopped. HIV test was negative. Hepatitis panel revealed that the patient has a hepatitis C infection. The patient noted to have elevated ammonia and started on Xifaxan. Tumor markers revealed normal CA 19-9 and elevated CEA 4.5. WBC remains low at 1.4 and 1.5. According to the gastrointestinals specialist who was involved in the care of this patient, the patient would benefit from gastrointestinal procedure, but it was not safe to perform with white blood count of 1.4. Diarrhea subsequently subsided. The patient looked nontoxic. Abdominal pain resolved. Outpatient referral to member services representative was arranged by primary doctor. Patient was explained that she will need in future gastrointestinal procedure when leukopenia improves. The patient was stable for discharge. DISCHARGE DIAGNOSES: 1. Intractable diarrhea, resolved. 2. Leukopenia. 3. Possible cirrhosis. 4. Cholelithiasis, no evidence of cholecystitis. 5. Thrombocytopenia. 6. Hepatitis C status. 7. Elevated ammonia. 8. Hepatic encephalopathy. DISCHARGE MEDICATIONS: See medication reconciliation list. Prescription provided. DISCHARGE INSTRUCTIONS: The patient was discharged home. Follow up with the primary medical doctor and member services representative as arranged as outpatient. Bruce Bain M.D. I have been assigned to dictate discharge summary on this account and I was not involved in the patient's management. Rocio Arzatetrudy N.PNavya DR: MELQUIADES JOB#: [id number] CC: MELO
== END 2016-06-15 10:00 | disposition home or self-care (01) | DRG 392 ==
LOC: EMR 12:40 → 4W 16:30 → EDBEDREQ 19:06 → 4W 21:33
DX: R19.7 Diarrhea, unspecified (principal); D69.6 Thrombocytopenia, unspecified; K74.60 Unspecified cirrhosis of liver; B19.9 Unspecified viral hepatitis without hepatic coma; K80.70 Calculus of gallbladder and bile duct without cholecystitis without obstruction; K21.9 Gastro-esophageal reflux disease without esophagitis; D72.819 Decreased white blood cell count, unspecified; Z91.81 History of falling; K72.90 Hepatic failure, unspecified without coma
CPT/HCPCS: 36415; 71010; 74000; 76700; 78266; 80048; 80053; 81003; 82140; 82248; 82378; 83690; 84439; 84443; 84484; 85007; 85025; 85610; 85730; 86301; 86703; 86705; 86709; 86803; 87340; 93005; J2405

== ENCOUNTER 2017-07-17 07:59 | Inpatient (IN) | payer OTHER ==
[2017-07-17] VITALS (7 sets, daily range): BP systolic 95–147; BP diastolic 53–77
[~2017-07-17] VITALS: Ht 160 cm; Wt 92.5 kg
[~2017-07-17 07:59] MED LIST changes: +ACETAMINOPHEN1 EACH ORAL; +BACLOFEN10 MG ORAL; +METRONIDAZOLE500 MG ORAL; +OMEPRAZOLE20 M2 ORAL; +PREVACID15 MG ORAL; +PROAIR HFA8.5 GM INH; +TUMS200 M1 PO; +XANAX2 MG ORAL
[2017-07-17] MEDS ORDERED: Sodium Chloride 500ML 500 ML IV ONE (08:10)
[2017-07-17] MEDS ORDERED: Morphine Sulfate 4mg/ml Inj IVP ONE (08:15)
[2017-07-17] MEDS ORDERED: Ipratropium 0.02% Inh Soln 2.5ml UD HHN ONE (08:15)
[2017-07-17] MEDS ORDERED: Albuterol ud Inhalation HHN ONE (08:15)
[2017-07-17] MEDS ORDERED: LORazepam Inj 2mg/ml 1ml IV ONE (08:45)
[2017-07-17 08:47] LABS: HEMATOCRIT 28.7 % (37.0-47.0); HEMOGLOBIN 9.5 G/DL (12.0-16.0); MEAN CORPUSCULAR VOLUME 107 FL (80-99); PLATELET COUNT 79 K/UL (150-450); RED BLOOD COUNT 2.68 M/UL (4.20-5.40); RED CELL DISTRIBUTION WIDTH 16.3 % (11.6-14.8)
[2017-07-17 08:48] LABS: WHITE BLOOD COUNT 1.8 K/UL (4.8-10.8)
[2017-07-17 08:57] LABS: ANION GAP 18 mmol/L (5-15); BLOOD UREA NITROGEN 29 mg/dL (7-18); CALCIUM 8.4 MG/DL (8.5-10.1); CARBON DIOXIDE 16 MMOL/L (21-32); CHLORIDE 101 MMOL/L (98-107); CREATININE 1.8 MG/DL (0.55-1.30); POTASSIUM 3.3 MMOL/L (3.5-5.1); SODIUM 135 MMOL/L (136-145)
[2017-07-17 08:58] LABS: INR 2.4 (0.9-1.1)
[2017-07-17 09:12] LABS: ALANINE AMINOTRANSFERASE 27 U/L (12-78); ALBUMIN 1.6 G/DL (3.4-5.0); ALBUMIN/GLOBULIN RATIO 0.3 (1.0-2.7); ALKALINE PHOSPHATASE 87 U/L (46-116); ASPARTATE AMINO TRANSFERASE 70 U/L (15-37); BILIRUBIN,TOTAL 7.5 MG/DL (0.2-1.0); CKMB 1.3 NG/ML (0.0-3.6); CREATINE KINASE 215 U/L (26-308)
[2017-07-17 09:13] LABS: BILIRUBIN,DIRECT 4.4 MG/DL (0.0-0.3)
[2017-07-17 09:24] LABS: APPEARANCE,URINE CLEAR; BILIRUBIN, URINE 3+ (NEGATIVE); COLOR,URINE BROWN; GLUCOSE, URINE (UA) NEGATIVE (NEGATIVE); KETONES,URINE 1+ (NEGATIVE); LEUKOCYTE ESTERASE ,URINE 1+ (NEGATIVE); NITRITE,URINE POSITIVE (NEGATIVE); PH,URINE 5 (4.5-8.0); PROTEIN,URINE 2+ (NEGATIVE); UROBILINOGEN,URINE 12 MG/DL (0.0-1.0)
[2017-07-17] MEDS ORDERED: Vancomycin 1 GM in NS 275 ML IVPB ONE (09:30)
[2017-07-17] MEDS ORDERED: Piperacillin/Tazobactam 3.375 GM in NS 110 ML IVPB ONE (09:30)
[2017-07-17] MEDS ORDERED: Piperacillin/Tazobactam 3.375 GM in D5W 110 ML IVPB ONE (09:45)
--- NOTE | 2017-07-17 10:08 | Emergency Room Report ---
History of Present Illness General Chief Complaint: Generalized Weakness Source: Patient, EMS Present Illness HPI Patient presents emergency department today with generalized weakness. According to patient's family patient has not been feeling well and last week with decreased responsiveness. Patient complains of abdominal pain has been coughing and appears to be decreased responsiveness. According the paramedics patient was found with feces on her. Both complaints are noted. Patient was a very poor historian. Patient's daughter could only state that the patient has been deteriorating. Symptoms noted to be severe. Patient's daughter states the patient would not come in until finally she got so sick that her daughter called 911 today. No other modifying factors. No other associated signs and symptoms. No other complaints were noted. Allergies: Coded Allergies: ASPIRIN (Verified Allergy, Unknown, Hives, 06/11/16) Patient History Past Medical History: HTN, other - Abdominal pain, gastritis Past Surgical History: none Pertinent Family History: none Social History: Denies: smoking, alcohol use, drug use Social History Narrative no history of alcohol drug or smoking Reviewed Nursing Documentation: PMH: Agreed; PSxH: Agreed Nursing Documentation-PMH Past Medical History: No History, Except For Hx Cardiac Problems: No Hx Asthma: No - BRONCHITIS Hx Cancer: No Hx Gastrointestinal Problems: Yes - abd pain Hx Neurological Problems: No Review of Systems All Other Systems: limited - Poor mental status and poor historian Physical Exam Vital Signs Date Time Temp Pulse Resp B/P (MAP) Pulse Ox O2 Delivery O2 Flow Rate FiO2 07/17/17 07:55 110 20 138/73 98 Room Air 07/17/17 08:22 97.5 97.5 07/17/17 08:25 21 Sp02 EP Interpretation: reviewed, normal General Appearance: alert, moderate distress, other - Confused, Chronically Ill Head: atraumatic Eyes: bilateral eye normal inspection ENT: dry mucus membranes Neck: normal inspection, supple, no bony tend Respiratory: decreased breath sounds, wheezing, expiration, inspiration Cardiovascular #1: regular rate, rhythm, no edema Gastrointestinal: soft, tenderness - Diffusely, other - Distended Genitourinary: no CVA tenderness Musculoskeletal: normal inspection, no calf tenderness Neurologic: alert, responsive, other - Confused. No obvious focal finding Psychiatric: normal inspection, judgement/insight normal, mood/affect normal Skin: normal inspection, normal color, no rash Procedures Critical Care Time Critical Care Time Patient had a critical medical condition which untreated could potentially result in life or limb threatening injury. Total critical care time excluding procedures was approximately 45 minutes. Medical Decision Making Diagnostic Impression: Primary Impression: Abdominal pain Qualified Codes: R10.84 - Generalized abdominal pain Additional Impressions: Sepsis Qualified Codes: A41.9 - Sepsis, unspecified organism Pneumonia Qualified Codes: J69.0 - Pneumonitis due to inhalation of food and vomit Hypothermia ER Course She presents emergency department today with weakness and hypothermia. Patient' s laboratory workup shows leukopenia. Exam is concerning for infection. Chest x-ray shows evidence of left-sided infiltrate. Therefore blood cultures were obtained patient was starting antibiotics per patient's lactic acid level is fairly elevated because of this patient likely has severe sepsis. Patient was started on IV fluids 30 mL/kg bolus. Case was discussed Dr. Schneider. Patient will be admitted. Patient's urine testing shows evidence UTIs as well and CT scan of the abdomen and pelvis according to radiology shows evidence of colitis. Therefore patient will be started on antibiotics. Zosyn and vancomycin. Will discuss case with Dr. call. Labs Test 07/17/17 07:01 07/17/17 07:15 07/17/17 09:00 White Blood Count 1.8 K/UL (4.8-10.8) Red Blood Count 2.68 M/UL (4.20-5.40) Hemoglobin 9.5 G/DL (12.0-16.0) Hematocrit 28.7 % (37.0-47.0) Mean Corpuscular Volume 107 FL (80-99) Mean Corpuscular Hemoglobin 35.4 PG (27.0-31.0) Mean Corpuscular Hemoglobin Concent 33.2 G/DL (32.0-36.0) Red Cell Distribution Width 16.3 % (11.6-14.8) Platelet Count 79 K/UL (150-450) Mean Platelet Volume 5.1 FL (6.5-10.1) Neutrophils (%) (Auto) % (45.0-75.0) Lymphocytes (%) (Auto) % (20.0-45.0) Monocytes (%) (Auto) % (1.0-10.0) Eosinophils (%) (Auto) % (0.0-3.0) Basophils (%) (Auto) % (0.0-2.0) Differential Total Cells Counted 100 Neutrophils % (Manual) 54 % (45-75) Lymphocytes % (Manual) 26 % (20-45) Monocytes % (Manual) 12 % (1-10) Eosinophils % (Manual) 5 % (0-3) Basophils % (Manual) 1 % (0-2) Band Neutrophils 2 % (0-8) Platelet Estimate Decreased Platelet Morphology Normal Macrocytosis 1+ Prothrombin Time 24.9 SEC (9.30-11.50) Prothromb Time International Ratio 2.4 (0.9-1.1) Activated Partial Thromboplast Time 51 SEC (23-33) Sodium Level 135 MMOL/L (136-145) Potassium Level 3.3 MMOL/L (3.5-5.1) Chloride Level 101 MMOL/L (98-107) Carbon Dioxide Level 16 MMOL/L (21-32) Anion Gap 18 mmol/L (5-15) Blood Urea Nitrogen 29 mg/dL (7-18) Creatinine 1.8 MG/DL (0.55-1.30) Estimat Glomerular Filtration Rate mL/min (>60) Glucose Level 107 MG/DL (74-106) Lactic Acid Level 7.00 mmol/L (0.66-2.22) Calcium Level 8.4 MG/DL (8.5-10.1) Total Bilirubin 7.5 MG/DL (0.2-1.0) Direct Bilirubin 4.4 MG/DL (0.0-0.3) Aspartate Amino Transf (AST/SGOT) 70 U/L (15-37) Alanine Aminotransferase (ALT/SGPT) 27 U/L (12-78) Alkaline Phosphatase 87 U/L (46-116) Total Creatine Kinase 215 U/L (26-308) Creatine Kinase MB 1.3 NG/ML (0.0-3.6) Creatine Kinase MB Relative Index 0.6 Troponin I 0.026 ng/mL (0.000-0.056) Pro-B-Type Natriuretic Peptide 2589 pg/mL (0-125) Total Protein 7.9 G/DL (6.4-8.2) Albumin 1.6 G/DL (3.4-5.0) Globulin 6.3 g/dL Albumin/Globulin Ratio 0.3 (1.0-2.7) Lipase 253 U/L (73-393) Urine Color Brown Urine Appearance Clear Urine pH 5 (4.5-8.0) Urine Specific [place] 1.020 (1.005-1.035) Urine Protein 2+ (NEGATIVE) Urine Glucose (UA) Negative (NEGATIVE) Urine Ketones 1+ (NEGATIVE) Urine Occult Blood 2+ (NEGATIVE) Urine Nitrite Positive (NEGATIVE) Urine Bilirubin 3+ (NEGATIVE) Urine Ictotest Positive Urine Urobilinogen 12 MG/DL (0.0-1.0) Urine Leukocyte Esterase 1+ (NEGATIVE) Urine RBC 0-2 /HPF (0 - 2) Urine WBC 2-4 /HPF (0 - 2) Urine Squamous Epithelial Cells Few /LPF (NONE/OCC) Urine Bacteria Few /HPF (NONE) Urine Granular Casts 0-2 /LPF (NONE) EKG Diagnostic Results Rate: tachycardiac Rhythm: NSR ST Segments: no acute changes Rhythm Strip Diag. Results EP Interpretation: yes Rate: 103 Rhythm: NSR, no PVC's, no ectopy Chest X-Ray Diagnostic Results Chest X-Ray Diagnostic Results : Chest X-Ray Ordered: Yes # of Views/Limited/Complete: 1 View Indication: Shortness of Breath EP Interpretation: Yes Interpretation: no effusion, no pneumothorax, other - Left-sided lower lobe infiltrate Impression: Other - Left-sided pneumonia Electronically Signed by: Electronically signed by Grupo Monique MD Last Vital Signs Date Time Temp Pulse Resp B/P (MAP) Pulse Ox O2 Delivery O2 Flow Rate FiO2 07/17/17 09:48 95.7 100 16 105/65 95 Room Air 95.7 07/17/17 08:45 21 Status: improved Disposition: ADMITTED INPATIENT Condition: Serious Referrals: [facility],REFERRING (PCP) GRUPO MONIQUE M.D. July 17, 2017 10:08
[2017-07-17] MEDS ORDERED: Heparin 2000 units/Ns 1000ml INJ PRN (13:00)
[2017-07-17] MEDS ORDERED: Lidocaine 1% Plain 30 ml INJ PRN (13:00)
[2017-07-17] MEDS ORDERED: Heparin Sod 1000 units/ml 10ml INJ ONE (13:00)
--- NOTE | 2017-07-17 13:41 | GI Initial Consult Note ---
Ana M Mena N.P. 07/17/17 1341: History of Present Illness General Date patient seen: July 17, 2017 Time patient seen: 13:57 Reason for Hospitalization: Generalized Weakness Referring physician: ANDRES PISANO Reason for Consultation: HEPATIC ENCEPHALOPATHY Present Illness HPI Patient presents emergency department today with generalized weakness. According to patient's family patient has not been feeling well and last week with decreased responsiveness. Patient complains of abdominal pain has been coughing and appears to be decreased responsiveness. According the paramedics patient was found with feces on her. Both complaints are noted. Patient was a very poor historian. Patient's daughter could only state that the patient has been deteriorating. Symptoms noted to be severe. Patient's daughter states the patient would not come in until finally she got so sick that her daughter called 911 today. No other modifying factors. No other associated signs and symptoms. No other complaints were noted. GI consulted for hepatic encephalopathy. ROS limited, pt is poor historian. All information obtained from medical record labs reviewed; patient presents with pancytopenia, anemia, hypercoagulability, electrolyte imbalance, renal insufficnecy, elevated ammonia and elevated AST. Unknown history of endoscopy / colonoscopy. Home Meds Active Scripts Metronidazole* (FLAGYL*) 500 Mg Tablet, 500 MG ORAL EVERY 8 HOURS for 7 Days, TAB Prov:Andres Pisano MD 06/15/16 Reported Medications Calcium Carbonate (TUMS) 200 Mg Tab.chew, 200 MG PO DAILY PRN for HEARTBURN, TAB 06/11/16 Acetaminophen/Diphenhydramine (ACETAMINOPHEN PM CAPLET) 1 Each Tablet, 1 TAB ORAL BEDTIME PRN for For Pain, TAB 06/11/16 Albuterol Sulfate* (PROAIR HFA*) 8.5 Gm Hfa.aer.ad, 2 PUFFS INH Q6H PRN for Shortness of Breath 06/11/16 Omeprazole (OMEPRAZOLE) 20 Mg Capsule.dr, 20 MG ORAL DAILY, CAP 06/11/16 Baclofen* (BACLOFEN*) 10 Mg Tablet, 10 MG ORAL THREE TIMES A DAY PRN for Muscle Spasm, TAB 06/11/16 Alprazolam* (XANAX*) 2 Mg Tablet, 1 MG ORAL EVERY OTHER DAY PRN for For Anxiety , TAB Patient cuts pill in 1/2 06/11/16 Med list reviewed/reconciled: Yes Allergies: Coded Allergies: ASPIRIN (Verified Allergy, Unknown, Hives, 06/11/16) Patient History Limited by: medical condition History Provided By: Patient PMH Narrative Past Medical History: HTN, other - Abdominal pain, gastritis Past Surgical History: none Pertinent Family History: none Social History: Denies: smoking, alcohol use, drug use Social History Narrative no history of alcohol drug or smoking Reviewed Nursing Documentation: PMH: Agreed; PSxH: Agreed Nursing Documentation-PMH Past Medical History: No History, Except For Hx Cardiac Problems: No Hx Asthma: No - BRONCHITIS Hx Cancer: No Hx Gastrointestinal Problems: Yes - abd pain Hx Neurological Problems: No Social History: Reports: alcohol use Review of Systems All Other Systems: negative except mentioned in HPI Physical Exam Vital Signs Date Time Temp Pulse Resp B/P (MAP) Pulse Ox O2 Delivery O2 Flow Rate FiO2 07/17/17 07:55 110 20 138/73 98 Room Air 07/17/17 08:22 97.5 97.5 07/17/17 08:25 21 07/17/17 10:40 2.0 Sp02 EP Interpretation: reviewed, normal Labs Laboratory Tests Test 07/17/17 07:01 07/17/17 07:15 07/17/17 09:00 07/17/17 11:35 White Blood Count 1.8 K/UL (4.8-10.8) *L Red Blood Count 2.68 M/UL (4.20-5.40) L Hemoglobin 9.5 G/DL (12.0-16.0) L Hematocrit 28.7 % (37.0-47.0) L Mean Corpuscular Volume 107 FL (80-99) H Mean Corpuscular Hemoglobin 35.4 PG (27.0-31.0) H Mean Corpuscular Hemoglobin Concent 33.2 G/DL (32.0-36.0) Red Cell Distribution Width 16.3 % (11.6-14.8) H Platelet Count 79 K/UL (150-450) L Mean Platelet Volume 5.1 FL (6.5-10.1) L Neutrophils (%) (Auto) % (45.0-75.0) Lymphocytes (%) (Auto) % (20.0-45.0) Monocytes (%) (Auto) % (1.0-10.0) Eosinophils (%) (Auto) % (0.0-3.0) Basophils (%) (Auto) % (0.0-2.0) Differential Total Cells Counted 100 Neutrophils % (Manual) 54 % (45-75) Lymphocytes % (Manual) 26 % (20-45) Monocytes % (Manual) 12 % (1-10) H Eosinophils % (Manual) 5 % (0-3) H Basophils % (Manual) 1 % (0-2) Band Neutrophils 2 % (0-8) Platelet Estimate Decreased L Platelet Morphology Normal Macrocytosis 1+ Prothrombin Time 24.9 SEC (9.30-11.50) H Prothromb Time International Ratio 2.4 (0.9-1.1) H Activated Partial Thromboplast Time 51 SEC (23-33) H Sodium Level 135 MMOL/L (136-145) L Potassium Level 3.3 MMOL/L (3.5-5.1) L Chloride Level 101 MMOL/L (98-107) Carbon Dioxide Level 16 MMOL/L (21-32) L Anion Gap 18 mmol/L (5-15) H Blood Urea Nitrogen 29 mg/dL (7-18) H Creatinine 1.8 MG/DL (0.55-1.30) H Estimat Glomerular Filtration Rate mL/min (>60) Glucose Level 107 MG/DL (74-106) H Lactic Acid Level 7.00 mmol/L (0.66-2.22) H 6.80 mmol/L (0.66-2.22) H Calcium Level 8.4 MG/DL (8.5-10.1) L Total Bilirubin 7.5 MG/DL (0.2-1.0) H Direct Bilirubin 4.4 MG/DL (0.0-0.3) H Aspartate Amino Transf (AST/SGOT) 70 U/L (15-37) H Alanine Aminotransferase (ALT/SGPT) 27 U/L (12-78) Alkaline Phosphatase 87 U/L (46-116) Total Creatine Kinase 215 U/L (26-308) Creatine Kinase MB 1.3 NG/ML (0.0-3.6) Creatine Kinase MB Relative Index 0.6 Troponin I 0.026 ng/mL (0.000-0.056) Pro-B-Type Natriuretic Peptide 2589 pg/mL (0-125) H Total Protein 7.9 G/DL (6.4-8.2) Albumin 1.6 G/DL (3.4-5.0) L Globulin 6.3 g/dL Albumin/Globulin Ratio 0.3 (1.0-2.7) L Lipase 253 U/L (73-393) Urine Color Brown Urine Appearance Clear Urine pH 5 (4.5-8.0) Urine Specific [place] 1.020 (1.005-1.035) Urine Protein 2+ (NEGATIVE) H Urine Glucose (UA) Negative (NEGATIVE) Urine Ketones 1+ (NEGATIVE) H Urine Occult Blood 2+ (NEGATIVE) H Urine Nitrite Positive (NEGATIVE) H Urine Bilirubin 3+ (NEGATIVE) H Urine Ictotest Positive Urine Urobilinogen 12 MG/DL (0.0-1.0) H Urine Leukocyte Esterase 1+ (NEGATIVE) H Urine RBC 0-2 /HPF (0 - 2) Urine WBC 2-4 /HPF (0 - 2) Urine Squamous Epithelial Cells Few /LPF (NONE/OCC) Urine Bacteria Few /HPF (NONE) Urine Granular Casts 0-2 /LPF (NONE) H Ammonia 92 umol/L (11-32) H General Appearance: well appearing, no apparent distress, alert Head: normocephalic EENT: PERRL/EOMI, normal ENT inspection Neck: supple Respiratory: normal breath sounds, no respiratory distress Cardiovascular: normal rate Gastrointestinal: normal inspection, non tender, soft, normal bowel sounds, non -distended Rectal: deferred Genitourinary: no CVA tenderness Musculoskeletal: normal inspection, back normal Neurologic: normal inspection, alert, oriented x3, responsive Psychiatric: normal inspection, judgement/insight normal, memory normal Skin: normal inspection, normal color, no rash, warm/dry, palpation normal, well hydrated Lymphatic: normal inspection, no adenopathy Current Medications Current Medications Medications (Trade) Dose Ordered Sig/Ok Route PRN Reason Start Time Stop Time Status Last Admin Dose Admin Ceftriaxone Sodium 1 gm/ Dextrose 55 ml @ 110 mls/hr Q24H IVPB 07/17/17 15:00 07/24/17 14:59 Dextrose/Sodium Chloride 1,000 ml @ 75 mls/hr [id number] IV 07/17/17 13:30 08/16/17 13:29 Heparin Sodium/ Sodium Chloride (Heparin 2000 units/Ns 1000ml premix) 2,000 unit ONCE PRN INJ PICC PLACEMENT 07/17/17 13:00 07/17/17 23:59 Lidocaine HCl (Xylocaine 1% 30ml) 30 ml ONCE PRN INJ PICC PLACEMENT 07/17/17 13:00 07/17/17 23:59 Metronidazole 100 ml @ 100 mls/hr Q8HR IVPB 07/17/17 14:00 07/24/17 13:59 GI: Plan Problems: (1) Hepatic encephalopathy (2) Thrombocytopenia (3) possible cirrhosis (4) Abdominal pain (5) Diarrhea (6) elevated ammonia levels Plan macrocytic hyperchromic anemia >> fu B12/folate levels abdominal U/S suspected cirrhosis Discriminant Function calculated >> poor prognosis and patient may benefit from glucocorticoid therapy. >> start prednisone 40mg daily maintain NPO + IVFs lactulose + Xifaxan anemia work up OB stool r/o GI bleed monitor H&H, prn transfusions bowel regime ppi start thiamine/folate fu labs, hepatitis panel trend ammonia levels Discussed with Dr. Gary. Thank you for this patient referral, we will follow. CHLOE GARY 07/19/17 0737: History of Present Illness General Reason for Hospitalization: Generalized Weakness Present Illness Home Meds Active Scripts Metronidazole* (FLAGYL*) 500 Mg Tablet, 500 MG ORAL EVERY 8 HOURS for 7 Days, TAB Prov:Andres Pisano MD 06/15/16 Reported Medications Calcium Carbonate (TUMS) 200 Mg Tab.chew, 200 MG PO DAILY PRN for HEARTBURN, TAB 06/11/16 Acetaminophen/Diphenhydramine (ACETAMINOPHEN PM CAPLET) 1 Each Tablet, 1 TAB ORAL BEDTIME PRN for For Pain, TAB 06/11/16 Albuterol Sulfate* (PROAIR HFA*) 8.5 Gm Hfa.aer.ad, 2 PUFFS INH Q6H PRN for Shortness of Breath 06/11/16 Omeprazole (OMEPRAZOLE) 20 Mg Capsule.dr, 20 MG ORAL DAILY, CAP 06/11/16 Baclofen* (BACLOFEN*) 10 Mg Tablet, 10 MG ORAL THREE TIMES A DAY PRN for Muscle Spasm, TAB 06/11/16 Alprazolam* (XANAX*) 2 Mg Tablet, 1 MG ORAL EVERY OTHER DAY PRN for For Anxiety , TAB Patient cuts pill in 2 06/11/16 Allergies: Coded Allergies: ASPIRIN (Verified Allergy, Unknown, Hives, 06/11/16) GI: Plan Plan The patient was seen and examined at bedside and all new and available data was reviewed in the patients chart. I agree with the above findings, impression and plan. (Patient seen earlier today. Signature stamp does not reflect patient encounter time.). - MD Trina Suárez Anh Aj Kim July 17, 2017 13:41 CHLOE GARY July 19, 2017 07:37
[2017-07-17] MEDS: D5NS 1,000 ML IV SCH (14:18)
--- NOTE | 2017-07-17 14:33 | Diagnostic Imaging Report ---
Indication: intermediate accountant venous access Findings: After the indications, procedure, risks, complications, and alternatives of the procedure were explained, written informed consent was obtained. The left upper extremity was prepped with alcohol. All elements of maximal sterile barrier technique were followed including usage of a cap, mask, sterile gown, sterile gloves, hand hygiene and a large sterile sheet. Sonographic evaluation of the upper extremity was performed demonstrating a patent and compressible brachial vein. Access was obtained under real-time ultrasound guidance (with utilization of sterile gel and sterile probe cover) and digital image was saved and archived. An .018 wire was introduced. Needle exchanged for a 5 [place] peel-away sheath. Measurements were obtained. A 5 [place] dual-lumen Power PICC line catheter was cut to 40 cm and introduced over the wire. Peel-away sheath and wire were removed.Catheter was secured to the skin using 2-0 Prolene suture. Both ports aspirate and flush easily. Post procedure chest x-ray demonstrates good position of the PICC line catheter within the SVC. Impression: Successful placement of an upper extremity PICC line catheter
[2017-07-17] MEDS: cefTRIAXone 1gm/D5W 55ml IVPB SCH ×2 (15:19)
[2017-07-17] MEDS: Lactulose 20gm/30ml UDC ORAL SCH (18:00)
[2017-07-17] MEDS ORDERED: Dyna-Hex 2% Top Sol 2oz TOPIC SCH (20:00)
--- NOTE | 2017-07-17 21:00 | Consultation ---
DATE OF CONSULTATION: 07/17/2017 CARDIOLOGY CONSULTATION CONSULTING PHYSICIAN: Rodrigo Duffy M.D. REQUESTING PHYSICIAN: Bruce Bain M.D. REASON FOR CONSULTATION: Tachycardia. HISTORY OF PRESENT ILLNESS: This is a 71-year-old female, who presented to the emergency room with progressive weakness and malaise and a one-week history of decreasing responsiveness. She has had worsening abdominal pain and apparently some abdominal distention as well. The patient is unable to give much more history and data is obtained from records as per family. The patient was hospitalized here about a year ago with abdominal pain and gastritis. At that time, her CA 19-9 was elevated and she also had leukopenia. Outpatient hematology/oncology workup was arranged, but no further results are presently available. PAST MEDICAL HISTORY: Hypertension, gastritis, elevated 19-9, and chronic bronchitis. MEDICATIONS: Prior to admission, reviewed and reconciled. ALLERGIES: Aspirin. SOCIAL HISTORY: Denies smoking, alcohol, or substance abuse. REVIEW OF SYSTEMS: Otherwise not obtainable from the patient at this time. PHYSICAL EXAMINATION: VITAL SIGNS: Afebrile, blood pressure 138/73, pulse 110, and respiratory rate 20. HEENT: Conjunctiva pink. Mild scleral icterus. Oropharynx clear. NECK: Supple. LUNGS: Diminished breath sounds. Few rhonchi. CARDIAC: Regular rhythm. Rapid rate. Normal S1 and S2 with no murmur. ABDOMEN: Distended, tympanic. Moderate fluid shift. Moderate diffuse tenderness. EXTREMITIES: With 1+ bilateral edema. LABORATORY AND DIAGNOSTIC DATA: White count 1.8 and hemoglobin 9.5. Sodium 135, potassium 3.3, bicarbonate 16, BUN 29, and creatinine 1.8. Lactic acid is 7. AST and ALT is 70/2.7. Total bilirubin is 7.5. Alkaline phosphatase is 87. Troponin negative. Pro-natriuretic peptide 2589. Albumin 1.6. IMPRESSION: 1. Secondary sinus tachycardia. 2. Chronic leukopenia. 3. Ascites. 4. Abdominal pain. 5. Volume overload pattern. 6. Severe protein-calorie malnutrition. PLAN: 1. Analgesics. 2. Consider therapeutic and diagnostic paracentesis. 3. Cardiac monitoring. 4. Maintenance hydration. 5. DVT prophylaxis. 6. Follow up results of prior outpatient workup. Rodrigo Duffy M.D. DR: CHANTE JOB#: [id number] CC:
[2017-07-18] VITALS (9 sets, daily range): BP systolic 0–143; BP diastolic 0–68
[2017-07-18] MEDS: D5NS 1,000 ML IV SCH (03:32)
[2017-07-18 04:59] LABS: HEMATOCRIT 25.1 % (37.0-47.0); HEMOGLOBIN 8.2 G/DL (12.0-16.0); MEAN CORPUSCULAR VOLUME 113 FL (80-99); PLATELET COUNT 55 K/UL (150-450); RED BLOOD COUNT 2.22 M/UL (4.20-5.40); RED CELL DISTRIBUTION WIDTH 17.1 % (11.6-14.8)
[2017-07-18 05:11] LABS: WHITE BLOOD COUNT 1.4 K/UL (4.8-10.8)
[2017-07-18 05:15] LABS: INR 3.5 (0.9-1.1)
[2017-07-18 05:49] LABS: % IRON SATURATION 109 % (15-50); IRON 72 ug/dL (50-175); TOTAL IRON BINDING CAPACITY 66 ug/dL (250-450)
[2017-07-18 05:58] LABS: ALANINE AMINOTRANSFERASE 19 U/L (12-78); ALBUMIN 1.3 G/DL (3.4-5.0); ALBUMIN/GLOBULIN RATIO 0.2 (1.0-2.7); ALKALINE PHOSPHATASE 72 U/L (46-116); ANION GAP 12 mmol/L (5-15); ASPARTATE AMINO TRANSFERASE 67 U/L (15-37); BILIRUBIN,TOTAL 7.3 MG/DL (0.2-1.0); BLOOD UREA NITROGEN 30 mg/dL (7-18); CALCIUM 7.5 MG/DL (8.5-10.1); CARBON DIOXIDE 19 MMOL/L (21-32); CHLORIDE 106 MMOL/L (98-107); CREATININE 2.4 MG/DL (0.55-1.30); FERRITIN 1379 NG/ML (8-388); PHOSPHORUS 4.3 MG/DL (2.5-4.9); POTASSIUM 3.3 MMOL/L (3.5-5.1); SODIUM 137 MMOL/L (136-145)
[2017-07-18 06:00] LABS: BILIRUBIN,DIRECT 4.6 MG/DL (0.0-0.3)
[2017-07-18] MEDS ORDERED: Thiamine 100mg tab ORAL SCH (09:00)
[2017-07-18] MEDS: Morphine Sulfate 4mg/ml Inj IVP PRN ×2 (09:25→14:04)
--- NOTE | 2017-07-18 09:25 | Diagnostic Imaging Report ---
Indication: Abnormal liver function tests Technique: Grayscale and duplex Doppler imaging of the abdomen performed. Comparison: None Findings: There is a moderate to large amount of ascites present. There is nodularity of the liver indicative of cirrhosis/chronic disease. Gallstones are present. Sonographic Blood's is reported as positive for technologist. Correlate clinically. There is no biliary ductal dilatation. CBD is 3 mm. Spleen is normal in size. Kidneys are unremarkable. Pancreas and aorta not well seen. IMPRESSION: Chronic liver disease/cirrhosis with moderate to severe ascites. Normal size spleen. Cholelithiasis. Correlate for cholecystitis.
[2017-07-18] MEDS ORDERED: D5NS 1000ml IV ONE (10:08)
[2017-07-18] MEDS ORDERED: D5 1/2NS 1000ml IV ONE (10:08)
[2017-07-18] MEDS ORDERED: Tubing IV Secondary IV ONE (10:08)
[2017-07-18] MEDS: Lactulose 20gm/30ml UDC ORAL SCH ×2 (10:50→13:00)
--- NOTE | 2017-07-18 13:30 | History and Physical Report ---
DATE OF ADMISSION: 07/17/2017 HISTORY OF PRESENT ILLNESS: This is a 71-year-old female, who was brought in by family with generalized weakness. The patient is unable to provide any history. History is obtained from reviewing of records and reviewing old records from a previous admission here at this hospital. The patient presented with abdominal pain. She has been found to have significant hyperbilirubinemia and she also has been noted to have a high CA 19-9 in the past. She was also found to have ascites. The patient was found to be hypotensive in the emergency room. She was also found to have evidence of UTI. PAST MEDICAL HISTORY: History is notable for hypertension, abdominal pain, and previous gastritis. SOCIAL HISTORY: There is no history of smoking or alcohol use. ALLERGIES: Aspirin. MEDICATIONS: List of home medications included rifaximin and lactulose. The patient is also noted to be pancytopenic. PHYSICAL EXAMINATION: VITAL SIGNS: Blood pressure at this time is 130/70, heart rate 104, respirations 20, she is afebrile. GENERAL: Reveals elderly female. HEENT: Unremarkable. CHEST: Shows decreased breath sounds bilaterally. ABDOMEN: Distended with palpable ascites. EXTREMITIES: There is 1+ edema. LABORATORY AND DIAGNOSTIC DATA: Lab testing discussed above is notable for potassium 3.3, creatinine 2.4, glucose 404. Lactic acid 6.7, now 6.8. Total bilirubin 7.3, direct bilirubin 4.6. AST is 67, ALT is 19. Ammonia 92. White count 1.4, hemoglobin 9.2, and platelet count 51,000. Coags notable for INR of 3.5. Urinalysis shows evidence of positive nitrites. Imaging studies were obtained. Abdominal ultrasound was done, which showed that she has cirrhosis with ascites as well as cholelithiasis. IMPRESSION: 1. Liver cirrhosis, etiology at this time unknown, suspect liver disease. 2. Pancytopenia. 3. Ascites. 4. UTI. 5. Hyperammonemia. DISCUSSION: I will contact family to discuss further and obtain information. The patient has been started on lactulose and also on broad-spectrum antibiotics. I will continue follow carefully. At this time, her condition is critical and prognosis is grave. We will follow. Bruce Bain M.D. DR: CHANTE JOB#: [id number] CC:
--- NOTE | 2017-07-18 14:34 | Diagnostic Imaging Report ---
Indication: Cough Comparison: 06/11/2016 A single view chest radiograph was obtained. Findings: Interstitial opacities are present with prominent vascularity. Borderline cardiomegaly is present. Bones are osteopenic. IMPRESSION: Interstitial edema/CHF
--- NOTE | 2017-07-18 14:34 | Diagnostic Imaging Report ---
Indication: Abdominal pain Technique: Continuous helical transaxial imaging of the abdomen and pelvis was obtained from the lung bases to the pubic symphysis. No intravenous contrast was administered. Coronal 2-D reformats were also obtained. Automatic Exposure Control was utilized. Total Dose length Product (DLP): 900.[address] Dose Index Volume (CTDIvol): 16.14 mGy Comparison: none Findings: There are fine reticular densities demonstrated at the periphery of the lung bases particularly on the left side consistent with a mild degree of fibrosis. Coronary calcifications are present. There is a moderate size hiatal hernia. There is moderate ascites demonstrated. The liver surface appears nodular. The spleen is enlarged. There may be portosystemic varices but this is difficult to assess on noncontrast images. There is a moderate degree of mesenteric stranding which may be inflammatory or due to engorged vessels. Anasarca noted. Diverticula noted within the colon. The colon is diffusely nondistended. Difficult to assess for colitis, which is suspected. There is no obvious free air. There is a tiny nonobstructive stone in the lower pole the left kidney. There are innumerable gallstones present within a distended gallbladder. Cholecystitis not excluded. Uterus is present. Urinary bladder is nondistended. Small inguinal nodes, nonspecific. IMPRESSION: Significantly limited study due to the lack of IV and oral contrast administration. Cholelithiasis. Cholecystitis not excluded. Chronic liver disease/cirrhosis with stigmata of portal hypertension including splenomegaly. Moderate ascites. Possibility of portosystemic varices not excluded. Other mesenteric areas of soft tissue stranding and nodularity are nonspecific, especially on noncontrast imaging and could be on the basis of the portal hypertension, inflammatory disease or neoplastic etiologies. Suspected pancolitis. Evaluation limited. Diverticulosis of the colon. Atherosclerotic disease Moderate hiatal hernia. Anasarca Suggestion of mild fibrosis involving the peripheral lung bases. Nonobstructive stone in the lower pole left kidney. The CT scanner at [facility] is accredited by the [employer] and the scans are performed using dose optimization techniques as appropriate to a performed exam including Automatic Exposure control.
[2017-07-18] MEDS ORDERED: Phytonadione 10 MG in D5W 55 ML IVPB ONE (15:00)
--- NOTE | 2017-07-18 15:59 | Diagnostic Imaging Report ---
Indication: Intubation Comparison: 07/17/2017 A single view chest radiograph was obtained. Findings: Endotracheal tube is in good position 4 cm above the blanca. Nasogastric tube is also been passed and is in good position with the tip within the stomach. Development of extensive bilateral upper lobe infiltrates demonstrated. A left PICC line is been placed. The tip projects over the SVC in good position. Heart size is stable. IMPRESSION: Endotracheal tube and other tubes and lines satisfactory in position. Development of extensive bilateral upper lobe infiltrates. Consider aspiration
[2017-07-18] MEDS: cefTRIAXone 1gm/D5W 55ml IVPB SCH ×2 (16:50)
[2017-07-18] MEDS ORDERED: [UNRECOGNIZED DRUG - OTHER] IV ONE ×2 (17:00→17:15)
[2017-07-18] MEDS ORDERED: FOLIC ACID IV ONE ×2 (17:00→17:15)
[2017-07-18] MEDS ORDERED: THIAMINE HCL IV ONE ×2 (17:00→17:15)
[2017-07-18] MEDS ORDERED: MULTIVITAMIN IV ONE ×2 (17:00→17:15)
[2017-07-18] MEDS ORDERED: Sodium Bicarbonate 50ml Carp IV SCH ×2 (17:00→17:15)
[2017-07-18] MEDS ORDERED: Morphine Sulfate 4mg/ml Inj IVP PRN ×3 (17:15→18:25)
--- NOTE | 2017-07-18 17:15 | Consultation ---
DATE OF CONSULTATION: 07/18/2017 INFECTIOUS DISEASES CONSULTATION CONSULTING PHYSICIAN: Rachael Ricketts M.D. REFERRING PHYSICIAN: Bruce Bain M.D. REASON FOR CONSULTATION: Ascites, to rule out spontaneous bacterial peritonitis. HISTORY OF PRESENTING ILLNESS: This is a 71-year-old lady with history of hypertension, gastritis, chronic bronchitis, elevated CA 19-9, who came in because she had weakness, increasing malaise, and decreasing responsiveness. She also has increasing abdominal pain and distention and an Infectious Diseases consultation has been obtained for antibiotics. PAST MEDICAL HISTORY: 1. History of hypertension. 2. Gastritis. 3. Elevated CA 19-9. 4. Chronic bronchitis. SOCIAL HISTORY: Unknown. FAMILY HISTORY: Unknown. REVIEW OF SYSTEMS: Unable to obtain currently. MEDICATIONS: As an inpatient, she is on morphine, thiamine, folic acid, multivitamin, prednisone, rifaximin, chlorhexidine gluconate, lactulose, ceftriaxone, Flagyl. ALLERGIES: The patient is allergic to aspirin. PHYSICAL EXAMINATION: VITAL SIGNS: Temperature of 97.4, T-max of 97.9, pulse of 116, respiratory rate 26, blood pressure 123/65, O2 saturation of 96%. HEENT: Pupils are equally reactive to light and accommodation. Mouth appears clean without thrush. NECK: Supple. No adenopathy. No JVD. CARDIOVASCULAR: Regular rate and rhythm. No murmurs. LUNGS: Clear to auscultation bilaterally. No crackles. No wheezes. ABDOMEN: Firm and distended. No organomegaly. EXTREMITIES: No cyanosis. No clubbing. Edema noted bilaterally. Left arm PICC line noted. LABORATORY AND DIAGNOSTIC DATA: White count of 1.4, hemoglobin 8.2, hematocrit 25.1, MCV 113, platelet count of 55,000. Sodium 137, potassium 3.3, chloride 106, bicarbonate 19, BUN 30, creatinine 2.4, glucose of 404, calcium 7.5, total bilirubin , AST 67, ALT 19, alkaline phosphatase 72, ammonia of 51, total protein 6.6, albumin 1.3. Lipase of 253. UA is showing 2 to 4 white cells. Hepatitis A, B, and C is pending. Abdominal ultrasound showing chronic liver disease, cirrhosis with [id number] ascites, normal-sized spleen, cholelithiasis noted. ASSESSMENT: 1. This is a 71-year-old lady with history of hypertension, gastritis, who comes in with abdominal pain and distention and ascites. I would be concerned regarding spontaneous bacterial peritonitis. 2. We would also like to rule out urinary tract infection as a possibility. 3. Renal failure. 4. Thrombocytopenia. 5. Anemia. PLAN: 1. Continue ceftriaxone and Flagyl. 2. Consider paracentesis. 3. We will order urine cultures. 4. We will follow up cultures and adjust antibiotics accordingly. I would like to thank, Dr. Bain, for this consultation. Rachael Ricketts M.D. DR: DEANGELO JOB#: [id number] CC: Bruce Bain M.D.; Fax#: [phone]
--- NOTE | 2017-07-18 17:27 | GI Progress Note ---
Assessment/Plan Problems: (1) Coffee ground emesis ICD Codes: K92.0 - Hematemesis SNOMED: 07376662, 295344600 (2) elevated ammonia levels (3) possible cirrhosis (4) Thrombocytopenia ICD Codes: D69.6 - Thrombocytopenia, unspecified SNOMED: 847032510 (5) Hepatic encephalopathy ICD Codes: K72.90 - Hepatic failure, unspecified without coma SNOMED: 50470024 (6) Abdominal pain ICD Codes: R10.9 - Unspecified abdominal pain SNOMED: 68551822 Qualifiers: Qualified Codes: R10.84 - Generalized abdominal pain Status: not improved, deteriorating Status Narrative Discussed with Dr. Hi. Assessment/Plan s/p code >> family requesting DNR/DNI macrocytic hyperchromic anemia >> fu B12/folate levels abdominal U/S suspected cirrhosis Discriminant Function calculated >> poor prognosis and patient may benefit from glucocorticoid therapy. >> start prednisone 40mg daily maintain NPO + IVFs lactulose + Xifaxan anemia work up OB stool r/o GI bleed monitor H&H, prn transfusions bowel regime ppi start thiamine/folate fu labs, hepatitis panel Subjective Subjective limited Objective Last 24 Hour Vital Signs Date Time Temp Pulse Resp B/P (MAP) Pulse Ox O2 Delivery O2 Flow Rate FiO2 07/18/17 16:31 90 18 100 07/18/17 14:34 99.0 07/18/17 14:30 117 18 100 07/18/17 14:04 99.0 07/18/17 12:00 99.0 99 18 90/53 89 Nasal Cannula 2.0 99.0 07/18/17 11:49 91 07/18/17 09:25 97.4 07/18/17 08:00 113 07/18/17 08:00 96.0 105 22 95/48 90 Nasal Cannula 2.0 96.0 07/18/17 04:08 116 07/18/17 04:00 97.4 111 26 123/65 96 Nasal Cannula 2.0 97.4 07/18/17 00:00 97.2 95 18 118/68 98 Nasal Cannula 2.0 97.2 07/17/17 23:58 99 07/17/17 20:00 96.6 106 24 110/77 95 Nasal Cannula 2.0 96.6 07/17/17 19:20 103 Intake and Output 07/17/17 07/18/17 19:00 07:00 Intake Total 432.5 ml 1060 ml Balance 432.5 ml 1060 ml Intake IV Total 432.5 ml 1060 ml # Bowel Movements 1 Laboratory Tests Test 07/17/17 18:00 07/17/17 18:55 07/18/17 04:00 07/18/17 15:25 Lactic Acid Level 6.70 mmol/L (0.66-2.22) H 6.80 mmol/L (0.66-2.22) H White Blood Count 1.4 K/UL (4.8-10.8) *L Red Blood Count 2.22 M/UL (4.20-5.40) L Hemoglobin 8.2 G/DL (12.0-16.0) L Hematocrit 25.1 % (37.0-47.0) L Mean Corpuscular Volume 113 FL (80-99) H Mean Corpuscular Hemoglobin 36.7 PG (27.0-31.0) H Mean Corpuscular Hemoglobin Concent 32.6 G/DL (32.0-36.0) Red Cell Distribution Width 17.1 % (11.6-14.8) H Platelet Count 55 K/UL (150-450) L Mean Platelet Volume 6.3 FL (6.5-10.1) L Neutrophils (%) (Auto) % (45.0-75.0) Lymphocytes (%) (Auto) % (20.0-45.0) Monocytes (%) (Auto) % (1.0-10.0) Eosinophils (%) (Auto) % (0.0-3.0) Basophils (%) (Auto) % (0.0-2.0) Differential Total Cells Counted 100 Neutrophils % (Manual) 41 % (45-75) L Lymphocytes % (Manual) 36 % (20-45) Monocytes % (Manual) 16 % (1-10) H Eosinophils % (Manual) 3 % (0-3) Basophils % (Manual) 1 % (0-2) Band Neutrophils 3 % (0-8) Platelet Estimate Decreased L Platelet Morphology Normal Anisocytosis 1+ Macrocytosis 1+ Reticulocyte Count 3.7 % (0.0-2.0) H Prothrombin Time 37.3 SEC (9.30-11.50) H Prothromb Time International Ratio 3.5 (0.9-1.1) H Activated Partial Thromboplast Time 65 SEC (23-33) H Sodium Level 137 MMOL/L (136-145) Potassium Level 3.3 MMOL/L (3.5-5.1) L Chloride Level 106 MMOL/L (98-107) Carbon Dioxide Level 19 MMOL/L (21-32) L Anion Gap 12 mmol/L (5-15) Blood Urea Nitrogen 30 mg/dL (7-18) H Creatinine 2.4 MG/DL (0.55-1.30) H Estimat Glomerular Filtration Rate mL/min (>60) Glucose Level 404 MG/DL (74-106) #H Calcium Level 7.5 MG/DL (8.5-10.1) L Phosphorus Level 4.3 MG/DL (2.5-4.9) Magnesium Level 1.7 MG/DL (1.8-2.4) L Iron Level 72 ug/dL (50-175) Total Iron Binding Capacity 66 ug/dL (250-450) L Percent Iron Saturation 109 % (15-50) H Unsaturated Iron Binding -6 ug/dL (112-346) L Ferritin 1379 NG/ML (8-388) H Total Bilirubin 7.3 MG/DL (0.2-1.0) H Direct Bilirubin 4.6 MG/DL (0.0-0.3) H Aspartate Amino Transf (AST/SGOT) 67 U/L (15-37) H Alanine Aminotransferase (ALT/SGPT) 19 U/L (12-78) Alkaline Phosphatase 72 U/L (46-116) Ammonia 51 umol/L (11-32) H Total Protein 6.6 G/DL (6.4-8.2) Albumin 1.3 G/DL (3.4-5.0) L Globulin 5.3 g/dL Albumin/Globulin Ratio 0.2 (1.0-2.7) L Vitamin B12 Level 1348 PG/ML (193-986) H Folate 3.4 NG/ML (8.6-58.9) L Thyroid Stimulating Hormone (TSH) 2.130 uiU/mL (0.358-3.740) Free Thyroxine 1.31 NG/DL (0.76-1.46) Hepatitis A IgM Antibody Pending Hepatitis B Surface Antigen Pending Hepatitis B Core IgM Antibody Pending Hepatitis C Antibody Pending Arterial Blood pH 7.000 (7.350-7.450) Arterial Blood Partial Pressure CO2 44.3 mmHg (35.0-45.0) Arterial Blood Partial Pressure O2 149.3 mmHg (75.0-100.0) H Arterial Blood HCO3 10.7 mmol/L (22.0-26.0) L Arterial Blood Oxygen Saturation 97.8 % (92.0-98.0) Arterial Blood Base Excess -19.6 Gideon Test Positive Height (Feet): 5 Height (Inches): 3.00 Weight (Pounds): 204 General Appearance: other Cardiovascular: normal rate Respiratory/Chest: other - mech vent Abdominal Exam: normal bowel sounds, non tender, soft Extremities: non-tender Ana M Mena N.P. July 18, 2017 17:27
[2017-07-18] MEDS ORDERED: Lactulose 20gm/30ml UDC ORAL SCH (18:00)
[2017-07-18] MEDS ORDERED: Dyna-Hex 2% Top Sol 2oz TOPIC SCH (20:00)
[2017-07-18] MEDS ORDERED: Pantoprazole Inj IVP SCH ×2 (21:00)
--- NOTE | 2017-07-18 21:57 | Emergency Room Report ---
History of Present Illness General Chief Complaint: Generalized Weakness Source: Patient Present Illness Allergies: Coded Allergies: ASPIRIN (Verified Allergy, Unknown, Hives, 06/11/16) Nursing Documentation-[facility] Past Medical History Deferred: Patient Unconscious Past Medical History: No History, Except For Hx Cardiac Problems: Yes - CHF Hx Asthma: Yes Hx Cancer: No Hx Gastrointestinal Problems: No Hx Neurological Problems: No Physical Exam Vital Signs Date Time Temp Pulse Resp B/P (MAP) Pulse Ox O2 Delivery O2 Flow Rate FiO2 07/17/17 07:55 110 20 138/73 98 Room Air 07/17/17 08:22 97.5 97.5 07/17/17 08:25 21 07/17/17 10:40 2.0 Procedures Critical Care Time Critical Care Time i. I feel this is a highly complex case requiring extensive working including EKG/Rhythm strip, Xray/CT/US, Blood/urine lab work, repeat exams while in ED, and administration of strong opiates/narcotics for pain control, admission to hospital or close patient follow up. Total time: 30 min bedside evaluation and treatment excludes procedures (EKG). Reason for critical care: Vomiting, aystole Possible complications: hypotension, hypertension, CO, shock, arrhythmias, metabolic acidosis, end organ damage, respiratory failure. Interventions: ACS, epinephrine, calcium, bicarbonate, intubation Course: patient presenting with asystole after vomiting. patient intubated. given epinephrine, calcium, bicarbonate. compressions. patient regained pulses. moved to ICU Consultations: nursing staff, EMS, family Performed by: Dr Paul Tolerated well condition = critical j. because of unstable vital signs this patient had a condition that could potentially threaten life or limb. I feel this is a critical patient who required my full attention while patient was considered critical. Total Critical Care Time excluding procedures was greater than 35 minutes CPR/Code Blue CPR/Code Blue Narrative see code blue sheet for full narrative Intubation Intubation : Consent: Verbal Intubation Method: orotracheal Tube Size (cm): 7.0 Breath Sounds after Intubation: equal Post Intubation Xray: Yes Attempts: One Patient Tolerated: Well Complications: None Medical Decision Making Diagnostic Impression: Primary Impression: Abdominal pain Qualified Codes: R10.84 - Generalized abdominal pain Additional Impressions: Hypothermia Sepsis Pneumonia ER Course I was called to this CODE BLUE. Patient aspirated and then lost pulses. Initial rhythm asystole. Chest compressions started. Given epinephrine times multiple doses. Given calcium and bicarbonate. Intubated the patient. Suctioning through the ET tube yielded large amounts of coffee ground emesis. NG tube placed with large amount of coffee-ground emesis. Patient ultimately regained pulses. Patient moved ICU. Prognosis is critical Last Vital Signs Date Time Temp Pulse Resp B/P (MAP) Pulse Ox O2 Delivery O2 Flow Rate FiO2 07/18/17 19:00 0 0 0/0 0 Mechanical Ventilator 100 07/18/17 17:54 99.0 07/18/17 12:00 2.0 Status: improved Disposition: ADMITTED INPATIENT Condition: Critical Referrals: [facility],REFERRING (PCP) Devonte Paul MD July 18, 2017 21:57
[2017-07-19] MEDS ORDERED: D5NS 1,000 ML IV SCH ×2 (01:00)
--- NOTE | 2017-07-19 02:15 | Progress Note ---
DATE: 07/18/2017 CARDIOLOGY PROGRESS NOTE CRITICAL CARE 80 mins SUBJECTIVE: The patient is just subsequent to a Code Blue arrest. The patient apparently had hematemesis, aspirated, and became asystolic. She was successfully resuscitated by the emergency room physician with a Code Blue protocol. She is now orally intubated and NG tube is in place. She is in the intensive care unit. Blood pressure is marginal. OBJECTIVE: VITAL SIGNS: Blood pressure 75/40, pulse 140, respirations 24, presently no fever. Bright red blood from the NG-tube is noted. HEENT: Oral endotracheal tube in place. LUNGS: With coarse breath sounds and rhonchi. CARDIAC: Regular rhythm. Rapid rate. Normal S1, S2. ABDOMEN: Distended. EXTREMITIES: With 1+ edema and icterus is noted as well. LABORATORY DATA: White count 1.4, hemoglobin 8.2. Potassium 3.3, BUN 30, and creatinine 2.4. Magnesium 1.7. Ammonia 51. Albumin 1.3. Folate 3.4. ABG, 7.00, 44, and 149. IMPRESSION: 1. Acute respiratory acidosis. 2. Status post cardiopulmonary arrest. 3. Multiorgan system failure. 4. Critical and grave. 5. Shock multifactorial. 6. Lactic acidosis. PLAN: 1. Ventilator support. 2. Hyperventilate. 3. Broad-spectrum antibiotics. 4. Replace blood products including FFP. 5. NG tube to suction. 6. Magnesium and folic acid supplements. 7. She will likely need urgent endoscopy. 8. Pressor support. Rodrigo Duffy M.D. : SUSHMA JOB#: [id number] CC: MELO
--- NOTE | 2017-07-19 12:52 | Discharge Summary ---
Discharge Summary Discharge Summary Discharge Summary DATE OF ADMISSION: 07/17/2017 DATE OF DISCHARGE: 07/18/2017 CONSULTANTS: Dr. Anoop Ricketts BRIEF SUMMARY: Patient is a 71-year-old female, who was brought in by family due to generalized weakness. She presented with abdominal pain and was found to have significant hyperbilirubinemia and was noted to have high CA 199 in the past. She had ascites. On arrival to ED she was hypotensive. She was given IV fluids. Blood work showed leukopenia WBC was 1.8. Hemoglobin 9.5, hematocrit 28.7. Lactic acid was 7.0. Total bilirubin 7.5, direct bilirubin 4.4 AST was 70. Ammonia 92. Urinalysis was with 2-4 WBC, 0-2 RBC, 1+ leukocyte esterase, 3 + bilirubin, 2+ occult blood, 1+ ketones. Chest x-ray showed left sided lower lobe infiltrate. CT of the abdomen showed chronic liver disease/cirrhosis with stigmata of portal hypertension including splenomegaly, ascites. She was placed on nothing by mouth with IV fluids. She was started on ceftriaxone and Flagyl pending culture results. She was given lactulose and Xifaxan. She has microcytic hyperchromic anemia, folate level was 3.4. She was given folic acid and thiamine. Abdominal ultrasound showed chronic liver disease/cirrhosis with moderate to severe ascites. PICC line was inserted to the left upper extremity. INR 3.5. She was given vitamin K and was ordered to have fresh frozen plasma transfusion. On 07/18/2017, patient apparently had hematemesis and became asystolic. CODE BLUE was called. Patient was orally intubated and NG tube was inserted. Family requested comfort care and withdrawal of life support. CODE STATUS was changed to DO NOT RESUSCITATE/DO NOT INTUBATE. She was given morphine when necessary. She eventually . FINAL DIAGNOSES: Cardiorespiratory arrest Liver cirrhosis [place]ard cytopenia Ascites Urinary tract infection Hyperammonemia Acute respiratory acidosis Multiorgan system failure Shock, multifactorial Lactic acidosis Coffee-ground emesis Acute kidney injury Comfort Care/Palliative Care DISPOSITION: Patient . I have been assigned to dictate discharge summary on this account, and I was not involved in the patient's management. Rita Limon NP July 19, 2017 12:52
[2017-07-19] MEDS ORDERED: cefTRIAXone 1 GM in D5W 55 ML IVPB SCH (15:00)
--- NOTE | 2017-07-19 15:23 | Cardiology Report ---
APPROVED REPORT EKG Measurement Heart [id number] Sinus tachycardia Low voltage QRS Nonspecific T wave abnormality Abnormal ECG
== END 2017-07-18 19:30 | disposition expired | DRG 432 ==
LOC: EDBD 07:59 → EMR 08:17 → EDBEDREQ 09:42 → EDBEDREQSVC 10:01 → 2W 10:30 → EDBEDREQ 10:56 → ICU 07-18 15:00
PROC: 0BH18EZ Insertion of Endotracheal Airway into Trachea, Via Natural or Artificial Opening Endoscopic (ICD-10-PCS; principal; 2017-07-18)
DX: K74.60 Unspecified cirrhosis of liver (principal); E43 Unspecified severe protein-calorie malnutrition; D61.818 Other pancytopenia; N17.9 Acute kidney failure, unspecified; K92.0 Hematemesis; R57.9 Shock, unspecified; E87.2 Acidosis; N39.0 Urinary tract infection, site not specified; K76.6 Portal hypertension; R18.8 Other ascites; Z66 Do not resuscitate; Z51.5 Encounter for palliative care; R16.1 Splenomegaly, not elsewhere classified; K72.90 Hepatic failure, unspecified without coma; R19.7 Diarrhea, unspecified; I10 Essential (primary) hypertension; Z68.36 Body mass index [BMI] 36.0-36.9, adult; J42 Unspecified chronic bronchitis
CPT/HCPCS: 36415; 36569; 36600; 71045; 74018; 74176; 76700; 76937; 80053; 81003; 82140; 82248; 82378; 82550; 82553; 82607; 82728; 82746; 82803; 83540; 83550; 83605; 83690; 83735; 83880; 84100; 84439; 84443; 84484; 85007; 85025; 85044; 85610; 85730; 86705; 86709; 86803; 86850; 86870; 86900; 86901; 87040; 87340; 92950; 93005; 93970; 94002; 94640; 94664; 99291; J2405